=== PATIENT | female | born 1980 | race Caucasian/White ===

== ENCOUNTER → 2020-10-29 09:38 | Outpatient (BNVA) | payer OTHER, SELFPAY | PROVIDERS: Visit Provider Surgery ==

== ENCOUNTER 2020-11-29 12:52 | Outpatient (REF) | payer OTHER, SELFPAY ==
--- NOTE | ~2020-11-29 | US_ITS ---
EXAMINATION: US VENOUS ULTRASOUND WITH DOPPLER LOWER EXTREMITY, LEFT CLINICAL INFORMATION: Pain left lower extremity. Assess for occult DVT COMPARISON: Contralateral right lower extremity venous ultrasound 02/05/2017. CT pelvis noncontrast 10/22/2019. TECHNIQUE: Ultrasound of the deep veins is performed from the hip to the calf with compression sonography and color and pulse Doppler assessment. Spectral analysis with color-flow imaging is performed. FINDINGS: There is normal venous compression and respiratory variation and augmented flow. The visualized common femoral vein, superficial femoral vein, profunda femoral vein, popliteal vein, and the trifurcation region shows no evidence of deep venous thrombosis. No popliteal fossa cyst. US/US venous duplex LE LT IMPRESSION: No DVT demonstrated in the left lower extremity.
== END 2020-11-29 12:53 | disposition home or self-care (01) ==
LOC: HO.HMGCX 12:52
PROVIDERS: PCP Internal Medicine; Visit Provider Nurse Practitioner Family
DX: M79.662 Pain in left lower leg (principal)
CPT/HCPCS: 93971

== ENCOUNTER 2020-12-02 11:09 | Outpatient (REF) | payer OTHER, SELFPAY ==
[2020-12-02 11:41] LABS: MANUAL DIFF FLAG NO
[2020-12-02 11:54] LABS: Basophils Absolute Auto 0.1 X10*3/uL (0.0-0.2); Basophils Percent Auto 1.2 % (0-2); Eosinophils Absolute Auto 0.1 X10*3/uL (0.0-0.4); Eosinophils Percent Auto 1.4 % (0-4); Hematocrit 38.2 % (37-47); Imm Gran Abs Auto 0.01 X10*3/uL (0.00-0.03); Imm Gran Pct Auto 0.2 % (0.0-0.4); Lymphocytes Absolute Auto 2.1 X10*3/uL (1.2-4.9); Lymphocytes Percent Auto 39.9 % (20-40); Mean Corpuscular HGB Conc 31.4 g/dl (31.0-35.0); Mean Corpuscular Hemoglobin 28.2 pg (27.0-33.0); Mean Corpuscular Volume 89.9 fL (80-98); Mean Platelet Volume 10.5 fL (9.4-12.3); Monocytes Absolute Auto 0.2 X10*3/uL (0.1-1.2); Monocytes Percent Auto 4.7 % (2-11); Neutrophils Absolute Auto 2.7 X10*3/uL (2.0-8.3); Neutrophils Percent Auto 52.6 % (45-73); Platelet Count 273 X10*3/uL (160-400); Red Blood Count 4.25 X10*6/uL (4.20-5.50); Red Cell Distribution Width 13.8 % (11.0-16.0); White Blood Count 5.1 X10*3/uL (4.8-10.8)
[2020-12-02 12:26] LABS: Thyroid Stimulating Hormone 1.87 uIU/mL (0.32-4.0); Vitamin D 25-OH Total 17.7 ng/mL (>30)
[2020-12-02 12:37] LABS: Alanine Aminotransferase 12 U/L (0-31); Albumin Level 4.3 g/dL (3.5-5.0); Alkaline Phosphatase 88 U/L (39-117); Anion Gap 11 (12-20); Aspartate Amino Transferase 18 U/L (5-31); Bilirubin Total 0.6 mg/dL (0.0-1.0); Blood Urea Nitrogen 14 mg/dL (9-16); C Reactive Protein 0.08 mg/dL (< or = 0.50); Calcium 8.9 mg/dL (8.4-10.2); Carbon Dioxide 24 mmol/L (22-29); Chloride 108 mmol/L (96-108); Cholesterol 186 mg/dL; Estimated Glomerular Filt Rate > 60; Glucose Fasting 95 mg/dL (60-99); HDL Cholesterol 64 mg/dL; Iron 43 mcg/dL (30-160); LDL Cholesterol Calculated 104 mg/dl; Percent Iron Saturation 11 % (15-50); Potassium 4.7 mmol/L (3.3-5.1); Sodium 138 mmol/L (135-145); Total Iron Binding Capacity 398 mcg/dL (228-428); Total Protein 7.2 g/dL (6.5-8.0); Triglycerides 91 mg/dL; Unsaturated Iron Binding 355 ug/dL
[2020-12-04 09:24] LABS: Vitamin B12 600 pg/mL (200-900)
[2020-12-06 03:56] LABS: Zinc 57 mcg/dL (60-130)
[2020-12-06 06:17] LABS: Vitamin B1 7 nmol/L (8-30)
[2020-12-08 14:57] LABS: Vitamin A 40 mcg/dL (38-98)
== END 2020-12-02 11:10 | disposition home or self-care (01) ==
LOC: HO.LAB 11:09
PROVIDERS: PCP Internal Medicine; Visit Provider Surgery
DX: Z01.818 Encounter for other preprocedural examination (principal); K91.2 Postsurgical malabsorption, not elsewhere classified; E55.9 Vitamin D deficiency, unspecified
CPT/HCPCS: 36415; 80053; 80061; 82306; 82607; 83540; 84425; 84443; 84590; 84630; 85025; 86140

== ENCOUNTER → 2020-12-09 08:07 | Outpatient (BNVA) | payer OTHER, SELFPAY | PROVIDERS: PCP Internal Medicine; Visit Provider Surgery | DX: K91.2 Postsurgical malabsorption, not elsewhere classified (principal); Z01.818 Encounter for other preprocedural examination; Z13.9 Encounter for screening, unspecified ==

== ENCOUNTER 2021-05-24 13:53 | Outpatient (REF) | payer OTHER, SELFPAY ==
[2021-05-27 00:21] LABS: HPV mRNA E6/E7 rflx Not Detected (Not Detected)
== END 2021-05-24 13:54 | disposition home or self-care (01) ==
LOC: HO.LAB 13:53
PROVIDERS: PCP Internal Medicine; Visit Provider Advanced Practice Midwife
DX: Z01.419 Encounter for gynecological examination (general) (routine) without abnormal findings (principal); Z11.51 Encounter for screening for human papillomavirus (HPV); Z87.42 Personal history of other diseases of the female genital tract
CPT/HCPCS: 87624; 88142

== ENCOUNTER 2021-07-28 15:14 | Outpatient (REF) | payer OTHER, SELFPAY ==
--- NOTE | ~2021-07-28 | MM_ITS ---
EXAMINATION: MM SCREENING DIGITAL BREAST TOMOSYNTHESIS, BILATERAL CLINICAL INFORMATION: Screening. Asymptomatic. The lifetime risk of breast cancer based on the Tyrer-Cuzick Model is 12.5%. COMPARISON: Mammography: None. TECHNIQUE: Digital breast tomosynthesis is performed in both the craniocaudal and mediolateral oblique views along with computer-aided detection (CAD). Synthesized 2D images are generated from the tomosynthesis. Additional right exaggerated craniocaudal view performed. FINDINGS: The breasts are extremely dense, which lowers the sensitivity of mammography (ACR BI-RADS breast composition Category d). There are no significant masses, abnormal calcifications, or other abnormalities. On mediolateral oblique generated view of the left breast there is a question of irregular mass with calcifications however on tomosynthesis this is seen to represent superimposition of structures with the questioned calcifications appearing to be artifactual and similar to small density seen throughout the breasts. MM/MM tomosynthesis screening BI IMPRESSION: No specific mammographic evidence to suggest malignancy. ASSESSMENT: BI-RADS 1: Negative. RECOMMENDATION: Routine annual mammography screening. This patient's information was entered into a reminder system with a target due date for their next mammogram.
== END 2021-07-28 15:15 | disposition home or self-care (01) ==
LOC: HO.MAMMO 15:14
PROVIDERS: PCP Internal Medicine; Visit Provider Advanced Practice Midwife
DX: Z12.31 Encounter for screening mammogram for malignant neoplasm of breast (principal)
CPT/HCPCS: 77063; 77067

== ENCOUNTER 2021-08-10 15:12 | Outpatient (REF) | payer OTHER, SELFPAY ==
[2021-08-13 17:56] LABS: HPV mRNA E6/E7 rflx Not Detected (Not Detected)
== END 2021-08-10 15:13 | disposition home or self-care (01) ==
LOC: HO.LAB 15:12
PROVIDERS: PCP Internal Medicine; Visit Provider Advanced Practice Midwife
DX: Z12.4 Encounter for screening for malignant neoplasm of cervix (principal); Z11.51 Encounter for screening for human papillomavirus (HPV); Z87.42 Personal history of other diseases of the female genital tract
CPT/HCPCS: 87624; 88142

== ENCOUNTER 2022-03-15 08:23 | Outpatient (REF) | payer OTHER, SELFPAY ==
--- NOTE | ~2022-03-15 | XR_ITS ---
EXAMINATION: XR CHEST CLINICAL INFORMATION: Bronchitis. COMPARISON: 09/29/2019 chest radiographs. TECHNIQUE: 2 views of the chest were obtained. FINDINGS: No significant abnormality is noted involving the heart, lungs, mediastinum, bony thorax or soft tissues. XR/XR chest 2V IMPRESSION: No acute cardiopulmonary process.
== END 2022-03-15 08:24 | disposition home or self-care (01) ==
LOC: HO.HMGCX 08:23
PROVIDERS: PCP Internal Medicine; Visit Provider Physician Assistant
DX: J40 Bronchitis, not specified as acute or chronic (principal)
CPT/HCPCS: 71046

== ENCOUNTER 2022-08-01 13:06 | Outpatient (REF) | payer OTHER, SELFPAY ==
--- NOTE | ~2022-08-01 | MM_ITS ---
EXAMINATION: MM SCREENING DIGITAL BREAST TOMOSYNTHESIS, BILATERAL CLINICAL INFORMATION: Screening. Asymptomatic. COMPARISON: Mammography: July 28, 2021 TECHNIQUE: Digital breast tomosynthesis is performed in both the craniocaudal and mediolateral oblique views along with computer-aided detection (CAD). Synthesized 2D images are generated from the tomosynthesis. FINDINGS: The breasts are heterogeneously dense, which may obscure small masses (ACR BI-RADS breast composition Category c). There are no significant masses, abnormal calcifications, or other abnormalities. MM/MM tomosynthesis screening BI IMPRESSION: No significant changes from prior exam. ASSESSMENT: BI-RADS 1: Negative RECOMMENDATION: Routine annual mammography screening. This patient's information was entered into a reminder system with a target due date for their next mammogram.
== END 2022-08-01 13:07 | disposition home or self-care (01) ==
LOC: HO.MAMMO 13:06
PROVIDERS: PCP Internal Medicine; Visit Provider Advanced Practice Midwife
DX: Z12.31 Encounter for screening mammogram for malignant neoplasm of breast (principal)
CPT/HCPCS: 77063; 77067

== ENCOUNTER 2022-10-11 09:36 | Outpatient (REF) | payer OTHER, SELFPAY ==
[2022-10-11 11:43] LABS: MANUAL DIFF FLAG NO
[2022-10-11 11:49] LABS: Basophils Absolute Auto 0.1 X10*3/uL (0.0-0.2); Basophils Percent Auto 1.1 % (0-2); Eosinophils Absolute Auto 0.1 X10*3/uL (0.0-0.4); Eosinophils Percent Auto 1.8 % (0-4); Hematocrit 31.9 % (37.0-47.0); Hemoglobin 9.6 g/dl (12.0-16.0); Imm Gran Abs Auto 0.01 X10*3/uL (0.00-0.03); Imm Gran Pct Auto 0.2 % (0.0-0.4); Lymphocytes Absolute Auto 1.7 X10*3/uL (1.2-4.9); Lymphocytes Percent Auto 30.1 % (20-40); Mean Corpuscular HGB Conc 30.1 g/dl (31.0-35.0); Mean Corpuscular Hemoglobin 24.1 pg (27.0-33.0); Mean Corpuscular Volume 79.9 fL (80.0-98.0); Mean Platelet Volume 11.7 fL (9.4-12.3); Monocytes Absolute Auto 0.3 X10*3/uL (0.1-1.2); Monocytes Percent Auto 5.5 % (2-11); Neutrophils Absolute Auto 3.4 x10*3/uL (2.0-8.3); Neutrophils Percent Auto 61.3 % (45-73); Platelet Count 228 X10*3/uL (160-400); Red Blood Count 3.99 X10*6/uL (4.20-5.50); Red Cell Distribution Width 15.9 % (11.0-16.0); White Blood Count 5.5 X10*3/uL (4.8-10.8)
[2022-10-11 12:29] LABS: Estimated Average Glucose 103 mg/dL; Hemoglobin A1c % 5.2 %
[2022-10-11 12:38] LABS: Alanine Aminotransferase 11 U/L (0-31); Alkaline Phosphatase 56 U/L (39-117); Anion Gap 10 (12-20); Aspartate Amino Transferase 12 U/L (5-31); Bilirubin Total 0.6 mg/dL (0.0-1.0); Blood Urea Nitrogen 12 mg/dL (9-16); C Reactive Protein < 0.10 mg/dL (< or = 0.50); Calcium 8.7 mg/dL (8.4-10.2); Carbon Dioxide 22 mmol/L (22-29); Chloride 110 mmol/L (96-108); Cholesterol 155 mg/dL; Estimated Glomerular Filt Rate > 60; Glucose Random 97 mg/dL (60-115); HDL Cholesterol 59 mg/dL; Iron 23 mcg/dL (30-160); LDL Cholesterol Calculated 78 mg/dl; Percent Iron Saturation 6 % (15-50); Potassium 4.2 mmol/L (3.3-5.1); Sodium 138 mmol/L (135-145); Total Iron Binding Capacity 394 mcg/dL (228-428); Total Protein 6.9 g/dL (6.5-8.0); Triglycerides 93 mg/dL; Unsaturated Iron Binding 371 ug/dL
[2022-10-11 12:42] LABS: Ferritin 4 ng/mL (10-250); Insulin 6 uU/mL (2-29); TSH reflex Free T4 1.35 uIU/mL (0.32-4.0); Vitamin D 25-OH Total 16.2 ng/mL (>30)
[2022-10-11 12:43] LABS: Folate 13.4 ng/mL (> or = 4.0); Vitamin B12 386 pg/mL (200-900)
[2022-10-12 13:48] LABS: PTHI 120 pg/mL (16-77)
[2022-10-14 05:23] LABS: Zinc 67 mcg/dL (60-130)
[2022-10-16 05:03] LABS: Vitamin B1 9 nmol/L (8-30)
[2022-10-16 09:43] LABS: Vitamin A 46 mcg/dL (38-98)
== END 2022-10-11 09:37 | disposition home or self-care (01) ==
LOC: HO.HMGCLDS 09:36
PROVIDERS: PCP Internal Medicine; Visit Provider Physician Assistant Surgical
DX: Z98.84 Bariatric surgery status (principal)
CPT/HCPCS: 36415; 80053; 80061; 82306; 82607; 82728; 82746; 83036; 83525; 83540; 83970; 84425; 84443; 84590; 84630; 85025; 86140

== ENCOUNTER → 2022-10-24 12:54 | Outpatient (BNVA) | payer OTHER, SELFPAY | PROVIDERS: PCP Internal Medicine; Visit Provider Physician Assistant Surgical | DX: E66.9 Obesity, unspecified (principal) ==

== ENCOUNTER → 2022-12-28 12:53 | Outpatient (BNVA) | payer OTHER, SELFPAY | PROVIDERS: PCP Internal Medicine; Visit Provider Physician Assistant Surgical | DX: Z13.89 Encounter for screening for other disorder (principal) ==

== ENCOUNTER 2023-01-12 11:01 | Outpatient (REF) | payer OTHER, SELFPAY ==
[2023-01-12 14:45] LABS: Influenza A PCR NEGATIVE (Negative); Influenza B PCR NEGATIVE (Negative); Resp Syncy Virus RNA Qual PCR NEGATIVE (Negative); SARS COV2 PCR INHOUSE NEGATIVE (Negative)
== END 2023-01-12 11:02 | disposition home or self-care (01) ==
LOC: HO.LAB 11:01
PROVIDERS: Visit Provider Nurse Practitioner Family
DX: Z20.822 Contact with and (suspected) exposure to COVID-19 (principal); R09.89 Other specified symptoms and signs involving the circulatory and respiratory systems
CPT/HCPCS: 0241U

== ENCOUNTER 2023-06-26 12:50 | Outpatient (AMB) | payer OTHER, SELFPAY ==
--- NOTE | 2023-06-26 12:58 | MHC.OFFVISWM ---
Intake VS Expanded 06/26/23 13:10 BP 118/60 Blood Pressure Location Rt brachial Blood Pressure Position Sitting Pulse 79 Pulse Source Pulse Oximeter Temp 98.9 F Temperature Source Temporal Artery Scan Pulse Oximetry 99 Oxygen Delivery Method Room Air Height 5 ft 3 in Weight 200 lb 12.8 oz BMI 35.6 Body Fat % 38.0 Body Fat Mass 76.2 Fat Free Mass 124.4 Visceral Fat Rating 9.0 Body Water % 44.3 Body Water Mass 88.8 Muscle Mass/Score 118.2 Basal Metabolic Rate/Score 1,709 Intake Visit Reasons: (OV) LRYGB DOS 10/29/19 Allergies amoxicillin [From AUGMENTIN] Adverse Reaction (Severe, Verified 06/26/23 13:10) DIARRHEA clavulanic acid [From AUGMENTIN] Adverse Reaction (Severe, Verified 06/26/23 13:10) DIARRHEA Augmentin Allergy (Unknown, Uncoded 06/26/23 13:10) nausea and vomiting dogs/mold/dust Allergy (Unknown, Uncoded 06/26/23 13:10) nka Medication List - Last Reconciled 06/26/23 by LACEY Daniel biotin 10,000 mcg PO DAILY cholecalciferol (vitamin D3) 125 mcg PO DAILY iron,carbonyl-vitamin C 65 mg iron- 125 mg (Vitron-C) 1 tab PO BEDTIME [id number]-txi-rynp-FA-vit K 45 mg iron- 800 mcg-120 mcg (Bariatric Multivitamins) caps PO DAILY vitamin B complex (B Complex-Vitamin B12 tablet) 1 tab PO DAILY HPI HPI Comments History of Present Illness Details This?is a?42?yo female who is s/p RYGB 10/29/2019. Presents for 3 year 8 month post op visit. Weight at last visit on 12/28/2022 was 195.4 pounds with a BMI of 34.6, weight today is 200.8 pounds, representing a 5.4 pound weight gain with a BMI today of 35.6.? Reports occasionally experiencing a clammy feeling after eating, unsure what she ate at the time. Present meal plan includes: goal 80-85g/day midnight- Muscle Milk or Premier shake breakfast- yogurt with berries lunch- 3oz protein, 3oz veg Pt tends to eat 2 meals, one shake instead. Might have a small portion of rice. taking [employer] works 80-120 hours/week, thinks not getting enough protein Exercise routine includes: none, I'm constantly working - has a physical job, has a [employer] and wants to do more formal exercise [facility] [place] Medical History Factor V Leiden mutation History of DVT (deep vein thrombosis) Mixed hyperlipidemia Normal pelvic exam PCOS (polycystic ovarian syndrome) Thyroid nodule Vitamin D deficiency Surgical History History of repair of hiatal hernia History of Lauren-en-Y gastric bypass S/P wisdom tooth extraction Hx of tonsillectomy Hx of appendectomy Family History Father Hypercholesteremia HTN (hypertension) Mother No problems noted. Sister No problems noted. Other Mental health disorder Social History Housing: House Alcohol intake: current Alcohol intake frequency: holidays/special occasions only Patient Tobacco Use Status: Never used Tobacco e-Cigarette/Vaping Use: Never Used Second Hand Smoke Exposure: No (as a child) Current occupational status: employed Cognitive needs: No Hearing needs: No Vision needs: No Female Reproductive History Menstrual Age of Menarche: 11 Physical Exam Vital Signs: Last Vital Signs Temp 98.9 F 06/26/23 13:10 Pulse 79 06/26/23 13:10 BP 118/60 06/26/23 13:10 Pulse Ox 99 06/26/23 13:10 Oxygen Delivery Method Room Air 06/26/23 13:10 BMI result Body Mass Index 35.6 Assessment & Plan Assessment & Plan (1) Obesity (BMI 30-39.9): Code(s): E66.9 - Obesity, unspecified (2) History of Lauren-en-Y gastric bypass: Comment: 10/2019 Code(s): Z98.84 - Bariatric surgery status Plan Pt is agreeable to visit with RD to discuss meal plan options, as she is struggling to get enough protein and would like help with nutrition especially considering her long hours at work and variable schedule. Discussed the possibility of dumping syndrome as the cause of her postprandial clamminess; pt will track episodes and what was eaten before any future episodes. Labs ordered so pt can have done in September prior to next visit. RTC in early Oct for annual. Patient is obese and is not considered stable at this time. I spent a total of 30 minutes reviewing/updating records, examining the patient and counseling the patient on weight management as detailed above. Orders: Orders Lipid Panel Today Z98.84 - Bariatric surgery status Zinc Today Z98.84 - Bariatric surgery status Comprehensive Met. Panel Today Z98.84 - Bariatric surgery status C Reactive Protein Today Z98.84 - Bariatric surgery status TSH reflex Free T4 Today Z98.84 - Bariatric surgery status Vitamin D 25-OH Total Today Z98.84 - Bariatric surgery status Hemoglobin A1c Today Z98.84 - Bariatric surgery status Insulin Today Z98.84 - Bariatric surgery status IRON PROFILE Today Z98.84 - Bariatric surgery status Complete Blood Count Auto Diff Today Z98.84 - Bariatric surgery status Vitamin B12 and Folate Today Z98.84 - Bariatric surgery status Vitamin B1 Today Z98.84 - Bariatric surgery status Vitamin A Today Z98.84 - Bariatric surgery status Ferritin Today Z98.84 - Bariatric surgery status PTHI Today Z98.84 - Bariatric surgery status Coding Level of Care Code Est Pt Level 4 (13006) Diagnoses Obesity (BMI 30-39.9) E66.9 History of Lauren-en-Y gastric bypass Z84
[2023-06-26 13:10] VITALS: BP 118/60; PULSE 79; TEMP 37.2; O2SAT 99; BMI 35.6
== END 2023-06-26 13:40 | disposition home or self-care (01) ==
PROVIDERS: PCP Internal Medicine; Visit Provider Physician Assistant Surgical
DX: E66.9 Obesity, unspecified (principal); Z68.35 Body mass index [BMI] 35.0-35.9, adult; Z90.3 Acquired absence of stomach [part of]; Z98.84 Bariatric surgery status
CPT/HCPCS: 99214

== ENCOUNTER → 2023-06-26 12:50 | Outpatient (BNVA) | payer OTHER, SELFPAY | PROVIDERS: PCP Internal Medicine; Visit Provider Physician Assistant Surgical ==

== ENCOUNTER 2023-08-03 12:26 | Outpatient (REF) | payer OTHER, SELFPAY ==
--- NOTE | ~2023-08-03 | MM_ITS ---
EXAMINATION: MM SCREENING DIGITAL BREAST TOMOSYNTHESIS, BILATERAL CLINICAL INFORMATION: Screening. Asymptomatic. COMPARISON: Mammography: This study is compared with prior exams dating back to 2020. TECHNIQUE: Digital breast tomosynthesis is performed in both the craniocaudal and mediolateral oblique views along with computer-aided detection (CAD). Synthesized 2D images are generated from the tomosynthesis. FINDINGS: The breasts are heterogeneously dense, which may obscure small masses (ACR BI-RADS breast composition Category c). There is a focal asymmetry in the lower outer quadrant of the left breast. There is an asymmetry in the superior aspect of the left breast. Additional mammographic and targeted sonographic imaging of these findings is advised. There are grouped, amorphous calcifications in the left breast, just lateral to the posterior nipple line in the middle depth. Additional mammographic imaging magnification of this finding is advised. In the right breast, no are no significant masses, abnormal calcifications, or other abnormalities. MM/MM tomosynthesis screening BI IMPRESSION: Focal asymmetry in the left breast warrants additional mammographic and targeted sonographic imaging. Asymmetry in the left breast warrants additional mammographic and targeted sonographic imaging. Calcifications in the left breast, warrant additional mammographic imaging with magnification. There are no mammographic signs of malignancy in the right breast. ASSESSMENT: BI-RADS BI-RADS 0 - Incomplete: Needs additional Imaging. RECOMMENDATION: 1. Additional views of the left breast 2. Targeted ultrasound if warranted after review of the additional views. 3. Radiology department staff will contact the patient for additional imaging. Additional Imaging required This examination should not preclude the clinical evaluation of a suspicious palpable abnormality. This patient's information was entered into a reminder system with a target due date for their next mammogram.
== END 2023-08-03 12:27 | disposition home or self-care (01) ==
LOC: HO.MAMMO 12:26
PROVIDERS: PCP Internal Medicine; Visit Provider Advanced Practice Midwife
DX: Z12.31 Encounter for screening mammogram for malignant neoplasm of breast (principal)
CPT/HCPCS: 77063; 77067

== ENCOUNTER → 2023-08-03 12:30 | Outpatient (BNV) | payer OTHER, SELFPAY | PROVIDERS: PCP Internal Medicine; Visit Provider Radiology Diagnostic Radiology | DX: Z12.31 Encounter for screening mammogram for malignant neoplasm of breast (principal) | CPT/HCPCS: 77063; 77067 ==

== ENCOUNTER 2023-08-10 07:57 | Outpatient (AMB) | payer OTHER, SELFPAY ==
[2023-08-10 08:03] VITALS: BP 110/62; PULSE 74; O2SAT 100; BMI 35.2
--- NOTE | 2023-08-10 08:03 | MHC.PC.OV ---
Vital Signs 08/10/23 08:03 Height 5 ft 3 in Weight 199 lb BMI 35.2 BP 110/62 Blood Pressure Location Rt brachial Position Sitting Pulse 74 Pulse Source Pulse Oximeter Pulse Oximetry (%) 100 Oxygen Delivery Method Room Air Intake Visit Reasons: Annual PE Intake Note: Pt is here today for her PE Allergies amoxicillin [From AUGMENTIN] Adverse Reaction (Severe, Verified 08/10/23 08:03) DIARRHEA clavulanic acid [From AUGMENTIN] Adverse Reaction (Severe, Verified 08/10/23 08:03) DIARRHEA Augmentin Allergy (Unknown, Uncoded 08/10/23 08:03) nausea and vomiting dogs/mold/dust Allergy (Unknown, Uncoded 08/10/23 08:03) nka Medication List - Last Reconciled 08/10/23 by Zabrina Faye MD biotin 10,000 mcg PO DAILY cholecalciferol (vitamin D3) 125 mcg PO DAILY iron,carbonyl-vitamin C 65 mg iron- 125 mg (Vitron-C) 1 tab PO BEDTIME [id number]-dli-uxvv-FA-vit K 45 mg iron- 800 mcg-120 mcg (Bariatric Multivitamins) caps PO DAILY vitamin B complex (B Complex-Vitamin B12 tablet) 1 tab PO DAILY Tobacco use date assessed: 08/10/23 Dental Screening Dental Screen Date: 08/10/23 Did you have a dental visit in the last 12 months?: Yes Did you have a dental problem in the last 6 months where you did not have access to dental care?: No Was dental information given to patient?: Patient has dentist HPI Annual PE HPI Details Pt presents for PE. Pt c/o sore throat , nasal and chest congestion for 2 days. Patient denies fever chills shortness of breath. She complains of burning in her stomach for 2 week started after patient has been drinking a lot of water with lemon. She denies nausea vomiting change in bowel habits hematochezia melena REPLACED BY [facility] Medical History Factor V Leiden mutation History of DVT (deep vein thrombosis) Mixed hyperlipidemia Normal pelvic exam PCOS (polycystic ovarian syndrome) Thyroid nodule Vitamin D deficiency Surgical History History of repair of hiatal hernia History of Lauren-en-Y gastric bypass S/P wisdom tooth extraction Hx of tonsillectomy Hx of appendectomy Family History Father Hypercholesteremia HTN (hypertension) Mother No problems noted. Sister No problems noted. 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 1. Little interest or pleasure in doing things: not at all 2. Feeling down, depressed, or hopeless: not at all 3. Trouble falling or staying asleep, or sleeping too much: not at all 4. Feeling tired or having little energy: not at all 5. Poor appetite or overeating: not at all 6. Feeling bad about yourself - or that you are a failure or have let yourself or your family down: not at all 7. Trouble concentrating on things, such as reading the newspaper or watching television: not at all 8. Moving or speaking so slowly that other people could have noticed. Or the opposite - being so fidgety or restless that you have been moving around a lot more than usual: not at all 9. Thoughts that you would be better off or of hurting yourself in some way: not at all Total score: 0 Source: Developed by Drs. Tyrone Dale, Jodie Chin, Jacques Gavin and colleagues, with an educational jalen from [employer]. Thrive Questionnaire Date Thrive assessed: 08/10/23 I am a: Patient What is your living situation today?: I have a steady place to live Within the past 12 months, did the food you bought not last and you didn't have the money to get more?: Never true Within the past 12 months, did you worry whether your food would run out before you got money to buy more?: Never true Do you have trouble paying for medicines?: No Do you have trouble getting transportation to medical appointments?: No Do you have trouble paying your heating and electricity bill?: No Do you have trouble taking care of your child, family member or friend?: No Do you have trouble with day-to-day activities such as bathing, preparing meals, shopping, managing finances, etc.?: No Are you currently unemployed and looking for a job?: No Are you interested in more education?: No AUDIT C Alcohol Use Questionnaire (AUDIT-C) 1. How often do you have a drink containing alcohol?: Monthly or less 2. How many drinks containing alcohol do you have on a typical day when you are drinking?: 1 or 2 3. How often do you have six or more drinks on one occasion?: Never Total Score: 1 SHAKIRA-7 AMB Questionnaire SHAKIRA-7 Date SHAKIRA - 7 assessed: 08/10/23 Feeling nervous, anxious, or on edge: 0 = Not at all Not being able to stop or control worryin = Not at all Worrying too much about different things: 0 = Not at all Trouble relaxin = Not at all Being so restless that it is hard to sit still: 0 = Not at all Becoming easily annoyed or irritable: 0 = Not at all Feeling afraid as if something awful might happen: 0 = Not at all Total SHAKIRA-7 score (0-4 normal; 5-9 mild; 10-14 moderate; 15-21 severe): 0 Source: Developed by Drs. Tyrone Dale, Jodie Chin, Jacques Gavin and colleagues, with an educational jalen from [employer]. Review of Systems Const All systems reviewed & are unremarkable except as noted in HPI and below Reports no additional complaints Eyes Reports no additional complaints ENT Reports no additional complaints Card Reports no additional complaints Resp Reports no additional complaints GI Reports no additional complaints Reports no additional complaints Physical exam (Primary Care) Vital Signs: Last Vital Signs Pulse 74 08/10/23 08:03 BP 110/62 08/10/23 08:03 Pulse Ox 100 08/10/23 08:03 Oxygen Delivery Method Room Air 08/10/23 08:03 BMI result Body Mass Index 35.2 Tobacco/Smoking Status: Tobacco use Status Tobacco use date assessed 08/10/23 08/10/23 08:03 Patient Tobacco Use Status Former Tobacco user 08/10/23 08:03 e-Cigarette/Vaping Use Never Used 08/10/23 08:03 PHQ-9: PHQ-9 Score PHQ-9: Total score 0 08/10/23 08:07 Thrive Assessment: Date of Thrive Assessment Date Thrive assessed 08/10/23 08/10/23 08:07 Const General: no acute distress HENMT Head: Yes normal to inspection General nose exam: Normal external nose present Mouth: Normal oral and palatal mucosa present Throat: Yes posterior oropharynx abnormal (erythema) Eyes General: appearance normal, both eyes and all related structures Neck Neck: Yes no lymphadenopathy and Yes supple Resp Effort & Inspection: normal respiratory effort Auscultation: clear to auscultation bilaterally Cardio Rhythm: regular rhythm Heart sounds: S1 normal heart sound present and S2 normal heart sound present GI Inspection: Yes normal to inspection Palpation (GI): Soft to palpation Percussion: Yes normal to percussion Auscultation: normal bowel sounds Assessment and Plan Assessment & Plan (1) Thyroid nodule: Comment: f/u Endo Code(s): E04.1 - Nontoxic single thyroid nodule Plan: Obtain thyroid ultrasound (2) Vitamin B1 deficiency: Code(s): E51.9 - Thiamine deficiency, unspecified Plan: Check B1 level (3) Vitamin D deficiency: Code(s): E55.9 - Vitamin D deficiency, unspecified (4) Annual physical exam: Code(s): Z00.00 - Encounter for general adult medical examination without abnormal findings Plan: Well-balanced diet regular physical activity discussed with the patient. She is up-to-date with the Pap smear and mammogram by liberal arts teacher (5) Zinc deficiency: Code(s): E60 - Dietary zinc deficiency (6) Postoperative intestinal malabsorption: Code(s): K91.2 - Postsurgical malabsorption, not elsewhere classified Plan: Follows up with bariatric surgeon twice a year Orders: Orders Complete Blood Count Auto Diff Today E51.9 - Thiamine deficiency, unspecified, E55.9 - Vitamin D deficiency, unspecified, E60 - Dietary zinc deficiency, K91.2 - Postsurgical malabsorption, not elsewhere classified, Z00.00 - Encounter for general adult medical examination without abnormal findings Lipid Panel Today E51.9 - Thiamine deficiency, unspecified, E55.9 - Vitamin D deficiency, unspecified, E60 - Dietary zinc deficiency, K91.2 - Postsurgical malabsorption, not elsewhere classified, Z00.00 - Encounter for general adult medical examination without abnormal findings Vitamin B1 Today E51.9 - Thiamine deficiency, unspecified, E55.9 - Vitamin D deficiency, unspecified, E60 - Dietary zinc deficiency, K91.2 - Postsurgical malabsorption, not elsewhere classified, Z00.00 - Encounter for general adult medical examination without abnormal findings Vitamin A Today E51.9 - Thiamine deficiency, unspecified, E55.9 - Vitamin D deficiency, unspecified, E60 - Dietary zinc deficiency, K91.2 - Postsurgical malabsorption, not elsewhere classified, Z00.00 - Encounter for general adult medical examination without abnormal findings TSH reflex Free T4 Today E51.9 - Thiamine deficiency, unspecified, E55.9 - Vitamin D deficiency, unspecified, E60 - Dietary zinc deficiency, K91.2 - Postsurgical malabsorption, not elsewhere classified, Z00.00 - Encounter for general adult medical examination without abnormal findings Vitamin D 25-OH Total Today E51.9 - Thiamine deficiency, unspecified, E55.9 - Vitamin D deficiency, unspecified, E60 - Dietary zinc deficiency, K91.2 - Postsurgical malabsorption, not elsewhere classified, Z00.00 - Encounter for general adult medical examination without abnormal findings PTHI Today E51.9 - Thiamine deficiency, unspecified, E55.9 - Vitamin D deficiency, unspecified, E60 - Dietary zinc deficiency, K91.2 - Postsurgical malabsorption, not elsewhere classified, Z00.00 - Encounter for general adult medical examination without abnormal findings US thyroid Today E04.1 - Nontoxic single thyroid nodule, E51.9 - Thiamine deficiency, unspecified, E55.9 - Vitamin D deficiency, unspecified, E60 - Dietary zinc deficiency, K91.2 - Postsurgical malabsorption, not elsewhere classified, Z00.00 - Encounter for general adult medical examination without abnormal findings Hemoglobin A1c Today K91.2 - Postsurgical malabsorption, not elsewhere classified Comprehensive [place]. Panel Fast Today E51.9 - Thiamine deficiency, unspecified, E55.9 - Vitamin D deficiency, unspecified, E60 - Dietary zinc deficiency, K91.2 - Postsurgical malabsorption, not elsewhere classified, Z00.00 - Encounter for general adult medical examination without abnormal findings IRON PROFILE Today E51.9 - Thiamine deficiency, unspecified, E55.9 - Vitamin D deficiency, unspecified, E60 - Dietary zinc deficiency, K91.2 - Postsurgical malabsorption, not elsewhere classified, Z00.00 - Encounter for general adult medical examination without abnormal findings Vitamin B12 and Folate Today E51.9 - Thiamine deficiency, unspecified, E55.9 - Vitamin D deficiency, unspecified, E60 - Dietary zinc deficiency, K91.2 - Postsurgical malabsorption, not elsewhere classified, Z00.00 - Encounter for general adult medical examination without abnormal findings Ferritin Today K91.2 - Postsurgical malabsorption, not elsewhere classified Zinc Today K91.2 - Postsurgical malabsorption, not elsewhere classified Coding Level of Care Code Est Pt Prev Care 40-64y(61893) Diagnoses Thyroid nodule E04.1 Vitamin B1 deficiency E51.9 Vitamin D deficiency E55.9 Annual physical exam Z00.00 Zinc deficiency E60 Postoperative intestinal malabsorption K91.2
== END 2023-08-10 08:40 | disposition home or self-care (01) ==
PROVIDERS: Visit Provider Internal Medicine
DX: E04.1 Nontoxic single thyroid nodule (principal); E51.9 Thiamine deficiency, unspecified; E55.9 Vitamin D deficiency, unspecified; Z00.00 Encounter for general adult medical examination without abnormal findings; E60 Dietary zinc deficiency; K91.2 Postsurgical malabsorption, not elsewhere classified
CPT/HCPCS: 99396

== ENCOUNTER 2023-08-10 08:34 | Outpatient (REF) | payer OTHER, SELFPAY ==
[2023-08-10 11:28] LABS: MANUAL DIFF FLAG NO
[2023-08-10 11:38] LABS: Basophils Absolute Auto 0.1 X10*3/uL (0.0-0.2); Basophils Percent Auto 0.8 % (0-2); Eosinophils Absolute Auto 0.2 X10*3/uL (0.0-0.4); Eosinophils Percent Auto 1.8 % (0-4); Hematocrit 33.7 % (37.0-47.0); Hemoglobin 9.9 g/dl (12.0-16.0); Imm Gran Abs Auto 0.02 X10*3/uL (0.00-0.03); Imm Gran Pct Auto 0.2 % (0.0-0.4); Lymphocytes Absolute Auto 1.5 X10*3/uL (1.2-4.9); Lymphocytes Percent Auto 18.3 % (20-40); Mean Corpuscular HGB Conc 29.4 g/dl (31.0-35.0); Mean Corpuscular Volume 78.2 fL (80.0-98.0); Mean Platelet Volume 11.3 fL (9.4-12.3); Monocytes Absolute Auto 0.5 X10*3/uL (0.1-1.2); Monocytes Percent Auto 5.5 % (2-11); Neutrophils Absolute Auto 6.1 x10*3/uL (2.0-8.3); Neutrophils Percent Auto 73.4 % (45-73); Platelet Count 200 X10*3/uL (160-400); Red Blood Count 4.31 X10*6/uL (4.20-5.50); Red Cell Distribution Width 17.5 % (11.0-16.0); White Blood Count 8.3 X10*3/uL (4.8-10.8)
[2023-08-10 12:06] LABS: Estimated Average Glucose 103 mg/dL; Hemoglobin A1c % 5.2 % (<6.0)
[2023-08-10 12:23] LABS: Ferritin 6 ng/mL (10-250); TSH reflex Free T4 1.68 uIU/mL (0.32-4.0); Vitamin D 25-OH Total 38.1 ng/mL (>30)
[2023-08-10 12:26] LABS: Anion Gap 9 (12-20)
[2023-08-10 12:31] LABS: Alanine Aminotransferase 12 U/L (0-31); Albumin Level 4.4 g/dL (3.5-5.0); Alkaline Phosphatase 68 U/L (39-117); Aspartate Amino Transferase 17 U/L (5-31); Bilirubin Total 0.5 mg/dL (0.0-1.0); Blood Urea Nitrogen 15 mg/dL (9-16); Calcium 9.2 mg/dL (8.4-10.2); Carbon Dioxide 25 mmol/L (22-29); Chloride 108 mmol/L (96-108); Cholesterol 149 mg/dL (<200); Estimated Glomerular Filt Rate > 60; Glucose Fasting 97 mg/dL (60-99); HDL Cholesterol 55 mg/dL (>40); Iron 34 mcg/dL (30-160); LDL Cholesterol Calculated 78 mg/dL (<100); Percent Iron Saturation 9 % (15-50); Potassium 3.8 mmol/L (3.3-5.1); Sodium 138 mmol/L (135-145); Total Iron Binding Capacity 374 mcg/dL (228-428); Total Protein 7.7 g/dL (6.5-8.0); Triglycerides 83 mg/dL (<150); Unsaturated Iron Binding 340 ug/dL
[2023-08-10 12:50] LABS: Folate 13.8 ng/mL (> or = 4.0); Vitamin B12 742 pg/mL (200-900)
[2023-08-13 11:53] LABS: Calcium (PTHI) 9.1 mg/dL (8.6-10.2); PTHI 78 pg/mL (16-77)
[2023-08-14 14:48] LABS: Zinc 57 mcg/dL (60-130)
[2023-08-15 03:54] LABS: Vitamin A 39 mcg/dL (38-98)
[2023-08-17 14:04] LABS: Vitamin B1 14 nmol/L (8-30)
== END 2023-08-10 08:35 | disposition home or self-care (01) ==
LOC: HO.HMGCLDS 08:34
PROVIDERS: PCP Internal Medicine; Visit Provider Internal Medicine
DX: Z00.00 Encounter for general adult medical examination without abnormal findings (principal); E51.9 Thiamine deficiency, unspecified; E55.9 Vitamin D deficiency, unspecified; E60 Dietary zinc deficiency; K91.2 Postsurgical malabsorption, not elsewhere classified
CPT/HCPCS: 36415; 80053; 80061; 82306; 82607; 82728; 82746; 83036; 83540; 83970; 84425; 84443; 84590; 84630; 85025

== ENCOUNTER 2023-08-17 10:53 | Outpatient (AMB) | payer OTHER, SELFPAY ==
--- NOTE | 2023-08-17 10:54 | MHC.OFFWIV ---
Intake Vital Signs 08/17/23 10:55 Height 5 ft 3 in Weight 199 lb BMI 35.2 BP 116/74 Blood Pressure Location Lt brachial Position Sitting Pulse 78 Pulse Source Pulse Oximeter Temp 98.1 F Temp Source Temporal Artery Scan Pulse Oximetry (%) 98 Oxygen Delivery Method Room Air Intake Visit Reasons: EP ?Sinus Infection Intake Note: pt is here for c.o possible sinus infection Patient Tobacco Use Status: Former Tobacco user Allergies amoxicillin [From AUGMENTIN] Adverse Reaction (Severe, Verified 08/17/23 10:55) DIARRHEA clavulanic acid [From AUGMENTIN] Adverse Reaction (Severe, Verified 08/17/23 10:55) DIARRHEA Augmentin Allergy (Unknown, Uncoded 08/10/23 08:03) nausea and vomiting dogs/mold/dust Allergy (Unknown, Uncoded 08/10/23 08:03) nka Do you need a note to return to daycare/school/sports/work: Yes HPI HPI Comments History of Present Illness Details Ongoing sinus symptoms x 1.5 weeks Seen last week for physical and told it was a cold + congestion, green mucus Started in chest but now in head She denies CP or SOB + headache behind eyes and she said it is not horrible Increased green color No fever or chills Tried Mucinex, Sudafed without relief She denies current ear pain or st. She denies sick contacts [facility] Medical History Factor V Leiden mutation History of DVT (deep vein thrombosis) Mixed hyperlipidemia Normal pelvic exam PCOS (polycystic ovarian syndrome) Thyroid nodule Vitamin D deficiency Surgical History History of repair of hiatal hernia History of Lauren-en-Y gastric bypass S/P wisdom tooth extraction Hx of tonsillectomy Hx of appendectomy Family History Father Hypercholesteremia HTN (hypertension) Mother No problems noted. Sister No problems noted. 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 Housing: House Alcohol intake: current Alcohol intake frequency: holidays/special occasions only Patient Tobacco Use Status: Former Tobacco user e-Cigarette/Vaping Use: Never Used Second Hand Smoke Exposure: No (as a child) Current occupational status: employed Cognitive needs: No Hearing needs: No Vision needs: No Female Reproductive History Menstrual Age of Menarche: 11 Review of Systems Const Denies chills, Denies fatigue and Denies fever(s) Eyes Denies eye discharge ENT Reports nasal congestion, Reports sinus pressure and Denies sore throat (started with one) Card Denies chest pain and Denies dyspnea Resp Reports cough and Denies dyspnea GI Denies abdominal pain Endo Denies fatigue Physical Exam Vital Signs: Last Vital Signs Temp 98.1 F 08/17/23 10:55 Pulse 78 08/17/23 10:55 BP 116/74 08/17/23 10:55 Pulse Ox 98 08/17/23 10:55 Oxygen Delivery Method Room Air 08/17/23 10:55 BMI result Body Mass Index 35.2 General: Non-toxic, NAD. Speaking full sentences. Skin: Warm dry throughout Eye: EOMI HENT: Airway patent. Uvula midline. No pharyngeal erythema or edema. 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 Bilateral canals clear. TM non-erythematous, non-bulging. No TM perforation or hemotympanum noted. + bilateral maxillary and frontal sinus tenderness to palpation Respiratory: CTA bilaterally. No wheezes, rales or rhonchi Cardiac: RRR. No murmur MSK: Full ROM extremities. Neurology: A/O x 3.No aphasia or facial droop. Gait without abnormality Psych: Good mood and affect Assessment & Plan Assessment & Plan (1) Sinusitis: Code(s): J32.9 - Chronic sinusitis, unspecified Plan Patient seen and evaluated. Lungs are clear to auscultation vital signs are stable. Symptoms ongoing for 1.5 weeks associated sinus pressure and green drainage. Will treat with antibiotic. She says that she has sensitivity to Augmentin so we will give doxycycline to take with food, avoiding alcohol. Patient advised follow-up with her primary care provider in cough questions. She gave verbal understanding and had no additional questions at discharge Medications: New doxycycline hyclate 100 mg PO BID 14 caps 0RF J32.9 - Chronic sinusitis, unspecified Coding Level of Care Code Est Pt Level 3 (88769) Diagnoses Sinusitis J32.9
[2023-08-17 10:55] VITALS: BP 116/74; PULSE 78; TEMP 36.7; O2SAT 98; BMI 35.2
== END 2023-08-17 12:23 | disposition home or self-care (01) ==
PROVIDERS: PCP Internal Medicine; Visit Provider Physician Assistant
DX: J32.9 Chronic sinusitis, unspecified (principal)
CPT/HCPCS: 99213

== ENCOUNTER 2023-08-28 13:59 | Outpatient (REF) | payer OTHER, SELFPAY ==
--- NOTE | ~2023-08-28 | US_ITS ---
EXAMINATION: US THYROID CLINICAL INFORMATION: Nontoxic single thyroid nodule. COMPARISON: Thyroid ultrasound 02/23/2020 and 03/20/2019. TECHNIQUE: Linear transducer grayscale and color Doppler examination with attention to the region of the thyroid. FINDINGS: SIZE: Measurements of the thyroid lobes and nodules are given in sagittal, anteroposterior and transverse dimensions respectively. Right Thyroid Lobe: 5.0 x 1.7 x 1.5 cm, volume 6.4 mL. Previously 5.0 x 1.4 x 1.7 cm, volume 6.2 mL. Parenchyma: The gland echotexture is homogeneous. Thyroid vascularity is normal. Left Thyroid Lobe: 4.7 x 1.6 x 1.2 cm, volume 4.5 mL. Previously 4.4 x 1.2 x 1.5 cm, volume 4.3 mL. Parenchyma: The gland echotexture is homogeneous. Thyroid vascularity is normal. Isthmus: 0.36 cm in maximum AP dimension. Previously 0.20 cm. Estimated total number of nodules greater than or equal to 1 cm: 0. Wall Taper Helper nodules are described as follows: 1. Location: Right mid. Size: 0.75 x 0.50 x 0.64 cm, volume 0.12 mL. Previously: 0.80 x 0.40 x 0.60 cm, volume 0.10 mL. Nodule characteristics: Composition: Spongiform (0). Echogenicity: Anechoic (0). Shape: Not taller than wide (0). Margins: Smooth (0). Echogenic Foci: None (0). ACR TI-RADS total points: 0 ACR TI-RADS category: 1 Significant change in size (>/= 20% in 2 dimensions and minimal increase of 2 mm or 50% or greater increase in volume): No Change in features: No Change in ACR TI-RADS risk category: No 2. Location: Inferior to left inferior lobe. Size: 0.50 x 0.40 x 0.50 cm, volume 0.05 mL. Previously: 0.60 x 0.30 x 0.50 cm, volume 0.05 mL. Nodule characteristics: Composition: Solid (2). Echogenicity: Hyperechoic (1). Shape: Not taller than wide (0). Margins: Smooth (0). Echogenic Foci: None (0). ACR TI-RADS total points: 3 ACR TI-RADS category: 3 NODES: No lymphadenopathy is seen in the tissue surrounding the thyroid gland. US/US thyroid IMPRESSION: Stable subcentimeter thyroid nodules compared to 02/23/2020. No follow-up recommended as per ACR TI-RADS. ACR TI-RADS RECOMMENDATION REFERENCE: Ultrasound-guided fine-needle aspiration, follow up ultrasound, no further followup. * TR1 (0 point) and TR2 (2 points): No FNA or followup * TR3 (3 points): FNA if more than or equal to 2.5 cm in maximum dimension, follow up ultrasound in 1, 3 and 5 years if 1.5 to 2.4 cm in maximum dimension. * TR4 (4-6 points): FNA if more than or equal to 1.5 cm in maximum dimension, follow up ultrasound in 1, 2, 3 and 5 years if 1 to 1.4 cm in maximum dimension. * TR5 (more than or equal to 7 points): FNA if more than or equal to 1 cm in maximum dimension, follow up ultrasound every year for 5 years if 0.5 to 0.9 cm in maximum dimension. * TR3, TR4 or TR5 nodules that are below the size threshold for follow up receive no followup.
== END 2023-08-28 14:00 | disposition home or self-care (01) ==
LOC: HO.HMGCX 13:59
PROVIDERS: PCP Internal Medicine; Visit Provider Internal Medicine
DX: E04.1 Nontoxic single thyroid nodule (principal)
CPT/HCPCS: 76536

== ENCOUNTER 2023-09-13 14:23 | Outpatient (REF) | payer OTHER, SELFPAY ==
--- NOTE | ~2023-09-13 | MM_ITS ---
EXAMINATION: MM DIAGNOSTIC DIGITAL BREAST TOMOSYNTHESIS, LEFT US BREAST LIMITED, LEFT MAMMOGRAPHY: CLINICAL INFORMATION: Evaluate left breast inferior calcifications seen on screening exam. Evaluate 2 focal asymmetries in the outer quadrant of the left breast also seen on recent screening exam. COMPARISON: Mammography: 08/03/2023, 08/01/2022, 07/28/2021. TECHNIQUE: Digital breast tomosynthesis is performed in the following views: Spot magnification views in the left CC and MLO projections, a full-field 3-D left mediolateral view, as well as 3-D spot compression views in the MLO and left CC projection x2. FINDINGS: The breasts are heterogeneously dense, which may obscure small masses (ACR BI-RADS breast composition Category c). In the lower slightly outer left breast abutting a circumscribed mass (cyst) there are loosely grouped calcifications which are predominantly punctate and rounded in morphology without significant pleomorphism, branching, or linearity. No definite layering seen. These have a probably benign appearance and six-month interval follow-up recommended to ensure stability. Within the inferior lateral left breast, there is a 2.4 cm oval circumscribed mass, 5:00 axis, likely a cyst which will be evaluated by ultrasound. Within the superior lateral left breast there is a 1.8 cm oval circumscribed mass, 2:00 axis, also likely a cyst which will be evaluated by ultrasound. There are smaller circumscribed oval foci throughout the left breast suggesting small cysts or fibrocystic changes. ULTRASOUND: CLINICAL INFORMATION: As above. COMPARISON: None TECHNIQUE: Targeted sonographic evaluation was performed using a high frequency linear transducer. Attention was given to the lateral one half of the left breast. Selected archived documentation. FINDINGS: LEFT BREAST: Within the left breast at the 5:00 axis, 2 cm from the nipple, there is a 2.0 x 1.4 x 0.9 cm simple cyst, benign. This correlates well with the mammographic focus of concern. There are abutting microcystic changes with probable tiny calcifications present, suggesting foci of apocrine metaplasia. Within the left breast at the 2:00 axis, 8 cm from the nipple, there is a simple cyst measuring 1.4 x 1.4 x 1.0 cm, also correlating with the mass seen on mammography in the 2:00 axis. There are no findings suspicious for malignancy. MM/MM tomosynthesis added views L IMPRESSION: No findings suspicious for malignancy in the left breast. Calcifications are probably benign, likely related to apocrine metaplasia, for which six-month interval follow-up magnification views recommended to ensure stability. There are 2 sizable simple cysts in the left breast, accounting for the mammographic foci of concern. These are benign. There are some fibrocystic changes in the left breast abutting the larger cyst. These are also benign. OVERALL ASSESSMENT: Mammography: BI-RADS 3 - Probably benign finding(s) - 6 month follow-up suggested Ultrasound: BI-RADS 3 - Probably benign finding(s) - 6 month follow-up suggested RECOMMENDATION: 6 Month F/U Results were provided to the patient at time of visit by the technologist. This patient's information was entered into a reminder system with a target due date for their next mammogram.
== END 2023-09-13 14:24 | disposition home or self-care (01) ==
LOC: HO.MAMMO 14:23
PROVIDERS: PCP Internal Medicine; Visit Provider Advanced Practice Midwife
DX: R92.1 Mammographic calcification found on diagnostic imaging of breast (principal); N64.89 Other specified disorders of breast
CPT/HCPCS: 76642; 77061; 77065

== ENCOUNTER → 2023-09-13 14:30 | Outpatient (BNV) | payer OTHER, SELFPAY | PROVIDERS: PCP Internal Medicine; Visit Provider Radiology Diagnostic Radiology | DX: R92.0 Mammographic microcalcification found on diagnostic imaging of breast (principal) | CPT/HCPCS: 76642; 77061; 77065 ==

== ENCOUNTER 2024-02-06 08:58 | Outpatient (AMB) | payer OTHER, SELFPAY ==
--- NOTE | 2024-02-06 09:04 | A.OFFVIS_ITS ---
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 Required: No Information Interpreted: clinical only Computer Forensics Analyst: Computer Forensics Analyst Present Allergies amoxicillin [From AUGMENTIN] Adverse Reaction (Severe, Verified 02/06/24 09:14) DIARRHEA clavulanic acid [From AUGMENTIN] Adverse Reaction (Severe, Verified 02/06/24 09:14) DIARRHEA Augmentin Allergy (Unknown, Uncoded 02/06/24 09:14) nausea and vomiting dogs/mold/dust Allergy (Unknown, Uncoded 02/06/24 09:14) nka Medication List - Last Reconciled 02/06/24 by Radha Wilder CNM biotin 10,000 mcg PO DAILY cholecalciferol (vitamin D3) 125 mcg PO DAILY iron,carbonyl-vitamin C 65 mg iron- 125 mg (Vitron-C) 1 tab PO BEDTIME tdujyfolosmc-cum-qvro-FA-vit K 45 mg iron- 800 mcg-120 mcg (Bariatric Multivitamins) caps PO DAILY vitamin B complex (B Complex-Vitamin B12 tablet) 1 tab PO DAILY Is last menstrual period known: Yes Last menstrual period: 01/29/24 Do you need a note to return to daycare/school/sports/work: No HPI 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 She has no supervisor printing and stamping concerns at all she says she is getting Q 6 month mammograms to follow something that was found in left breast. She is working fewer hours and she was last year she has just not doing double shifts she is getting exercise with Gi and a rooming exercise class that is very active. Her periods are normal she has no other concerns. [facility] Medical History Normal pelvic exam History of DVT (deep vein thrombosis) Factor V Leiden mutation Thyroid nodule Mixed hyperlipidemia Vitamin D deficiency PCOS (polycystic ovarian syndrome) Surgical History History of repair of hiatal hernia History of Lauren-en-Y gastric bypass S/P wisdom tooth extraction Hx of tonsillectomy Hx of appendectomy Family History Father Hypercholesteremia HTN (hypertension) Mother No problems noted. Sister No problems noted. 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 Housing: House Alcohol intake: current Alcohol intake frequency: holidays/special occasions only Patient Tobacco Use Status: Former Tobacco user e-Cigarette/Vaping Use: Never Used Second Hand Smoke Exposure: No (as a child) Current occupational status: employed Cognitive needs: No Hearing needs: No Vision needs: No Female Reproductive History Menstrual Age of Menarche: 11 Date of last menstrual period: 01/29/24 control method: other Total pregnancies: 0 Date of last pap smear: 08/11/21 (negative) History of abnormal pap smear: Yes (2006& 2007,Abn.) Date of Mammogram: 08/14/23 (BI-Rads 3- probably benign finding) Physical Exam Vital Signs: BMI result Body Mass Index 34.9 Const General: healthy appearing, comfortable, no acute distress, well developed and alert Nutritional Appearance: average body habitus Orientation/consciousness: patient oriented x3 Limitations: no limitations HEENT Head: Yes normocephalic Neck Neck: Yes normal visual inspection Chest Chest palpation & inspection: normal inspection of the chest Breast/axilla inspection: normal inspection of the breasts and normal inspection of the axillae Breast/axilla palpation: normal palpation of the breasts and normal palpation of the axillae Resp Effort & Inspection: normal respiratory effort GI Inspection: Yes normal to inspection, No Abdominal wall edema and No distended Palpation (GI): Soft to palpation and nontender Other: Speculum exam within normal limits vagina pink and moist cervix nulliparous pink smooth tightly closed some dark. Blood noted at os when Cytobrush was introduced os cervix is long close thick mobile nontender. Uterus is small midposition mobile nontender adnexa nontender not enlarged very good tone with Kegel. General: Yes bladder normal to palpation External Female Exam: normal external appearance and normal appearance of the urethra Speculum Exam - Vagina: normal appearance of the vagina, normal palpation and normal vaginal discharge Speculum Exam - Cervix: normal appearance of the cervix, normal palpation and nontender Bimanual exam- vagina & uterus: normal bimanual exam, normal palpation, uterine size normal, bladder normal to palpation, consistency normal, normal palpation, uterine mobility normal, uterine shape normal, No Cervical tenderness present, non-tender and no cervical motion tenderness Bimanual Exam- Adnexa, other: normal adnexae, no masses, normal and No adnexal tenderness Neuro General: patient oriented x3 Assessment & Plan Assessment & Plan (1) Breast calcification seen on mammogram: Comment: left breast also benign cysts. 6 month follow-up is recommended, Code(s): R92.1 - Mammographic calcification found on diagnostic imaging of breast Category: Medical (2) Hx of abnormal cervical Pap smear: Onset Date: ~09/24/06 Comment: lsil, then ascus w hpv changes, last abnl 2007, paps normal after, 08/10/21 pap= neg, neg hpv,- per asccp- repeat in 3 yrs.= 2023 Code(s): Z87.42 - Personal history of other diseases of the female genital tract Category: Medical (3) Well woman exam with routine gynecological exam: Code(s): Z01.419 - Encounter for gynecological examination (general) (routine) without abnormal findings Category: Medical Plan -----Discussed in this visit the following: healthy balanced diet, regular and consistent exercise, getting recommended health screens, doing the best she can for her particular health concerns, kegel exercises, pap smear screening and followup recommendations, mammography screening and SBE, normal changes in cycles in her life stage--- . Repeating Pap today per asccap guidelines . Patient is getting Q six-month follow-up mammogram evaluations and they are reviewed by her primary care provider. She has no need of control because her had a vasectomy.. She is taking very good care of herself and not doing double shifts anymore. RTC 1 year. Coding Level of Care Code Est Pt Prev Care 40-64y(80355) Diagnoses Breast calcification seen on mammogram R92.1 Hx of abnormal cervical Pap smear Z87.42 Well woman exam with routine gynecological exam Z01.419
[2024-02-06 09:13] VITALS: BMI 34.9
== END 2024-02-06 11:08 | disposition home or self-care (01) ==
PROVIDERS: PCP Internal Medicine; Visit Provider Advanced Practice Midwife
DX: Z01.419 Encounter for gynecological examination (general) (routine) without abnormal findings (principal); R92.1 Mammographic calcification found on diagnostic imaging of breast; Z87.42 Personal history of other diseases of the female genital tract
CPT/HCPCS: 99396

== ENCOUNTER 2024-02-06 08:58 | Outpatient (REF) | payer OTHER, SELFPAY ==
[2024-02-12 12:49] LABS: HPV mRNA E6/E7 rflx Not Detected (Not Detected)
== END 2024-02-06 08:59 | disposition home or self-care (01) ==
LOC: HO.LAB 08:58
PROVIDERS: PCP Internal Medicine; Visit Provider Advanced Practice Midwife
DX: Z01.419 Encounter for gynecological examination (general) (routine) without abnormal findings (principal); Z11.51 Encounter for screening for human papillomavirus (HPV)
CPT/HCPCS: 87624; 88142

== ENCOUNTER 2024-03-18 13:09 | Outpatient (REF) | payer OTHER, SELFPAY ==
--- NOTE | ~2024-03-18 | MM_ITS ---
EXAMINATION: MM DIAGNOSTIC DIGITAL BREAST TOMOSYNTHESIS, LEFT CLINICAL INFORMATION: Six-month follow-up for probably benign left breast calcifications in the lower outer quadrant left breast. COMPARISON: Mammography: 09/13/2023, 08/03/2023 (BI-RADS 0), 08/01/2022, 07/28/2021. Ultrasound left breast 09/13/2023. TECHNIQUE: Digital left breast tomosynthesis is performed in both the craniocaudal and mediolateral oblique views along with computer-aided detection (CAD). Synthesized 2D images are generated from the tomosynthesis. In addition to standard views, spot magnification 2-D views in the left CC and MLO projections were obtained. An added left CC view was obtained. FINDINGS: The breasts are heterogeneously dense, which may obscure small masses (ACR BI-RADS breast composition Category c). Breast tissue is again noted to be heterogeneously dense and somewhat nodular, with underlying fibrocystic changes present.. The large cyst in the 6:00 axis appears to have decreased in size significantly. The cyst in the 2:00 axis middle depth appears similar. Calcifications in the inferolateral left breast appear stable, with loose grouping, and several layering on the 90 degree ML view suggesting milk of calcium. There has been no aggressive change. These remain probably benign. No developing suspicious calcifications, suspicious masses, or developing regions of architectural distortion are identified in the left breast. MM/MM tomosynthesis diagnostic LT IMPRESSION: There are no findings suspicious for malignancy in the left breast. There are stable loosely grouped calcifications in the lower outer quadrant left breast unchanged, some of which layer on the 90 degree view suggesting milk of calcium. These remain probably benign. Six-month interval follow-up diagnostic magnification views recommended when the patient is due for bilateral screening, to establish a one-year stability. Stable benign findings as discussed. ASSESSMENT: BI-RADS BI-RADS 3 - Probably benign finding(s) - 6 month follow-up suggested RECOMMENDATION: 6 Month F/U Results were provided to the patient at time of visit by the technologist. This patient's information was entered into a reminder system with a target due date for their next mammogram.
== END 2024-03-18 13:10 | disposition home or self-care (01) ==
LOC: HO.MAMMO 13:09
PROVIDERS: PCP Internal Medicine; Visit Provider Internal Medicine
DX: R92.1 Mammographic calcification found on diagnostic imaging of breast (principal)
CPT/HCPCS: 77061; 77065

== ENCOUNTER → 2024-03-18 13:30 | Outpatient (BNV) | payer OTHER, SELFPAY | PROVIDERS: PCP Internal Medicine; Visit Provider Radiology Diagnostic Radiology | DX: R92.1 Mammographic calcification found on diagnostic imaging of breast (principal) | CPT/HCPCS: 77061; 77065 ==

== ENCOUNTER 2024-03-20 10:34 | Outpatient (REF) | payer OTHER, SELFPAY ==
--- NOTE | ~2024-03-20 | XR_ITS ---
EXAMINATION: XR KNEE, RIGHT CLINICAL INFORMATION: Pain in right knee. COMPARISON: MRI knee of July 15, 2019. X-rays 07/14/2019. TECHNIQUE: Three views of the right knee. FINDINGS: Mild narrowing of the medial compartment. Small tricompartmental osteophytes. Moderate joint effusion. XR/XR knee RT 3V IMPRESSION: Mild degenerative changes.
== END 2024-03-20 10:35 | disposition home or self-care (01) ==
LOC: HO.HOSX 10:34
PROVIDERS: Visit Provider Orthopaedic Surgery
DX: M25.561 Pain in right knee (principal)
CPT/HCPCS: 20610; 73562; J1010

== ENCOUNTER 2024-03-20 12:49 | Outpatient (AMB) | payer OTHER, SELFPAY ==
--- NOTE | 2024-03-20 12:55 | MHC.OFFVIS ---
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 Galvan don'ts with complaints of progressively worsening right knee pain and giving way. The patient states that her symptoms have gotten worse over the last 10 years. Most of the pain is along the medial aspect of her knee. The patient states that her knee will give out several times per day. She has done a home exercise program for the last 3 months which she has failed. She has had difficulty exercising because of her pain. She also reports intermittent swelling in her right knee. She has failed the last 6 weeks of conservative treatment. Allergies amoxicillin [From AUGMENTIN] Adverse Reaction (Severe, Verified 03/20/24 13:05) DIARRHEA clavulanic acid [From AUGMENTIN] Adverse Reaction (Severe, Verified 03/20/24 13:05) DIARRHEA Augmentin Allergy (Unknown, Uncoded 03/20/24 13:05) nausea and vomiting dogs/mold/dust Allergy (Unknown, Uncoded 03/20/24 13:05) nka Medication List - Last Reconciled 03/20/24 by Yuri Thornton MD biotin 10,000 mcg PO DAILY cholecalciferol (vitamin D3) 125 mcg PO DAILY iron,carbonyl-vitamin C 65 mg iron- 125 mg (Vitron-C) 1 tab PO BEDTIME dctcxsdycjfy-tcy-osrg-FA-vit K 45 mg iron- 800 mcg-120 mcg (Bariatric Multivitamins) caps PO DAILY vitamin B complex (B Complex-Vitamin B12 tablet) [address] [facility] Medical History Normal pelvic exam History of DVT (deep vein thrombosis) Factor V Leiden mutation Thyroid nodule Mixed hyperlipidemia Vitamin D deficiency PCOS (polycystic ovarian syndrome) Surgical History History of repair of hiatal hernia History of Lauren-en-Y gastric bypass S/P wisdom tooth extraction Hx of tonsillectomy Hx of appendectomy Family History Father Hypercholesteremia HTN (hypertension) Mother No problems noted. Sister No problems noted. 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 Housing: House Alcohol intake: current Alcohol intake frequency: holidays/special occasions only Patient Tobacco Use Status: Former Tobacco user e-Cigarette/Vaping Use: Never Used Second Hand Smoke Exposure: No (as a child) Current occupational status: employed Cognitive needs: No Hearing needs: No Vision needs: No Female Reproductive History Menstrual Age of Menarche: 11 Physical Exam Vital Signs: BMI result Body Mass Index 34.9 Const Other: Well-nourished well-developed very friendly female awake alert and oriented x3 in no acute distress Extrem Other: Bilateral lower extremity examination shows good capillary refill, no skin lesions noted, normal sensation light touch Right knee examination shows a mild effusion, minimal crepitus with range of motion, tenderness along her medial joint line, positive Elie's test, no instability Office Procedures Joint Injection/Drain Joint Injection/Drain Primary Site: right knee Prep: site was prepped using aseptic technique Injected: 40 mg of, DepoMedrol and 1% plain lidocaine Procedure: The patient tolerated the procedure well Coding 94726 - Large joint Procedure code (CPT) selection complete Results Reviewed Results Reviewed: Standing full weight-bearing x-rays of the patient's right knee show mild diffuse joint space narrowing, no acute bony abnormalities Assessment & Plan Assessment & Plan (1) Right knee pain: Code(s): M25.561 - Pain in right knee Category: Medical Plan Mrs. Galvan presents with right knee pain and mechanical symptoms most likely due to a medial meniscus tear. I had a lengthy discussion with the patient regarding the treatment options. The risks and benefits of a right knee cortisone injection were discussed at length with the patient. The patient wished to proceed. Prior to the injection I aspirated 2 cc of clear fluid from her right knee. She tolerated the injection well. I will also send her for an MRI of her right knee to further evaluate the status of her medial meniscus. I will see her back once the MRI is completed to discuss the findings and treatment options. Feel free to call me at any time should questions regarding her orthopedic management arise. Thank you very much for asking me to see this very friendly patient. I spent 22 minutes in reviewing the patient's records and imaging studies, seeing the patient and documenting in the medical record. Orders: Orders XR knee RT 3V Today M25.561 - Pain in right knee MR knee RT wo con Today M25.561 - Pain in right knee AMB Joint Injection/Aspiration Today M25.561 - Pain in right knee Coding Level of Care Code New Pt Level 3 (71882) Diagnoses Right knee pain M25.561 CPT Codes Coding - Large joint: 76037 - Large joint ([id number])
[2024-03-20 12:56] VITALS: BMI 34.9
== END 2024-03-20 13:28 | disposition home or self-care (01) ==
PROVIDERS: PCP Internal Medicine; Visit Provider Orthopaedic Surgery
DX: M25.561 Pain in right knee (principal)
CPT/HCPCS: 20610; 99203

== ENCOUNTER 2024-05-07 12:38 | Outpatient (REF) | payer OTHER, SELFPAY ==
--- NOTE | ~2024-05-07 | MR_ITS ---
EXAMINATION: MR KNEE WITHOUT CONTRAST, RIGHT CLINICAL INFORMATION: Right knee pain and swelling. COMPARISON: Right knee radiographs dated 03/20/2024 and MRI dated 07/15/2019. TECHNIQUE: MRI of the knee without contrast was performed using routine sequences on a high-field scanner. FINDINGS: MENISCI: Medial Meniscus: Degenerative intrasubstance signal within the meniscal body and posterior horn, increased when compared to the prior examination. Inner margin fraying of the posterior root, new when compared to the prior examination. Lateral Meniscus: Intact LIGAMENTS: Cruciate: Intact Collateral: Mild edema adjacent to the medial collateral ligament consistent with a grade 1 sprain. Intact fibular collateral ligament. EXTENSOR MECHANISM: Intact ARTICULAR CARTILAGE/BONE: Patellofemoral Compartment: Patellar median ridge full-thickness articular cartilage defect measuring up to 0.8 cm in ML dimension. Central and medial trochlear articular cartilage thinning with areas of iupg-oees-pxbyjqnkr loss. Small marginal osteophytes. Findings are progressed when compared to the prior examination. Medial Compartment: Diffuse articular cartilage thinning with lznm-xizz-vpxvdmyad weight-bearing loss and small marginal osteophytes, slightly progressed. Lateral Compartment: Mild articular cartilage signal heterogeneity and surface irregularity with small marginal osteophytes, slight progressed. JOINT FLUID AND BURSAE: Moderate joint effusion. MR/MR knee RT wo con IMPRESSION: 1. Degenerative intrasubstance signal within the medial meniscal body and posterior horn, increased when compared to the prior examination. Inner margin fraying of the posterior root, new when compared to the prior examination. 2. Probable grade 1 sprain of the medial collateral ligament. 3. Qwvz-ew-fwuxtywo patellofemoral as well as mild medial and lateral compartment osteoarthritis, slightly progressed. Moderate joint effusion.
== END 2024-05-07 12:39 | disposition home or self-care (01) ==
LOC: HO.MRI 12:38
PROVIDERS: PCP Internal Medicine; Visit Provider Orthopaedic Surgery
DX: M25.561 Pain in right knee (principal)
CPT/HCPCS: 73721

== ENCOUNTER 2024-05-13 08:04 | Outpatient (REF) | payer OTHER, SELFPAY ==
[2024-05-13 10:05] LABS: MANUAL DIFF FLAG NO
[2024-05-13 10:13] LABS: Basophils Absolute Auto 0.1 X10*3/uL (0.0-0.2); Basophils Percent Auto 1.2 % (0-2); Eosinophils Absolute Auto 0.1 X10*3/uL (0.0-0.4); Eosinophils Percent Auto 1.7 % (0-4); Hematocrit 38.6 % (37.0-47.0); Hemoglobin 12.2 g/dl (12.0-16.0); Imm Gran Abs Auto 0.02 X10*3/uL (0.00-0.03); Imm Gran Pct Auto 0.4 % (0.0-0.4); Lymphocytes Absolute Auto 1.5 X10*3/uL (1.2-4.9); Lymphocytes Percent Auto 29.6 % (20-40); Mean Corpuscular HGB Conc 31.6 g/dl (31.0-35.0); Mean Corpuscular Hemoglobin 27.4 pg (27.0-33.0); Mean Corpuscular Volume 86.5 fL (80.0-98.0); Mean Platelet Volume 11.2 fL (9.4-12.3); Monocytes Absolute Auto 0.4 X10*3/uL (0.1-1.2); Monocytes Percent Auto 7.1 % (2-11); Neutrophils Absolute Auto 3.1 x10*3/uL (2.0-8.3); Platelet Count 250 X10*3/uL (160-400); Red Blood Count 4.46 X10*6/uL (4.20-5.50); Red Cell Distribution Width 15.2 % (11.0-16.0); White Blood Count 5.2 X10*3/uL (4.8-10.8)
[2024-05-13 10:20] LABS: Estimated Average Glucose 97 mg/dL
[2024-05-13 10:28] LABS: Alanine Aminotransferase 17 U/L (0-31); Albumin Level 4.1 g/dL (3.5-5.0); Alkaline Phosphatase 58 U/L (39-117); Anion Gap 10 (12-20); Aspartate Amino Transferase 20 U/L (5-31); Bilirubin Total 0.6 mg/dL (0.0-1.0); Blood Urea Nitrogen 17 mg/dL (9-16); Calcium 8.9 mg/dL (8.4-10.2); Carbon Dioxide 23 mmol/L (22-29); Chloride 108 mmol/L (96-108); Cholesterol 153 mg/dL (<200); Estimated Glomerular Filt Rate > 60; Glucose Random 102 mg/dL (60-115); HDL Cholesterol 54 mg/dL (>40); Iron 97 mcg/dL (30-160); LDL Cholesterol Calculated 78 mg/dL (<100); Percent Iron Saturation 29 % (15-50); Potassium 4.1 mmol/L (3.3-5.1); Sodium 137 mmol/L (135-145); Total Iron Binding Capacity 332 mcg/dL (228-428); Total Protein 7.2 g/dL (6.5-8.0); Triglycerides 108 mg/dL (<150); Unsaturated Iron Binding 235 ug/dL
[2024-05-13 10:38] LABS: Iron 98 mcg/dL (30-160); Percent Iron Saturation 29 % (15-50); Total Iron Binding Capacity 334 mcg/dL (228-428); Unsaturated Iron Binding 236 ug/dL
[2024-05-13 10:57] LABS: Folate 11.9 ng/mL (> or = 4.0); Vitamin B12 654 pg/mL (200-900)
[2024-05-13 11:00] LABS: Ferritin 20 ng/mL (10-250); TSH reflex Free T4 1.97 uIU/mL (0.32-4.0); Vitamin D 25-OH Total 39.7 ng/mL (>30)
[2024-05-13 12:12] LABS: Insulin 5 uU/mL (2-29)
[2024-05-16 02:23] LABS: Zinc 59 mcg/dL (60-130)
[2024-05-19 14:52] LABS: Vitamin A 83 mcg/dL (38-98)
[2024-05-21 06:29] LABS: Vitamin B1 33 nmol/L (8-30)
== END 2024-05-13 08:05 | disposition home or self-care (01) ==
LOC: HO.HMGCLDS 08:04
PROVIDERS: PCP Internal Medicine; Referring Provider Physician Assistant Surgical; Visit Provider Internal Medicine
DX: Z13.6 Encounter for screening for cardiovascular disorders (principal); Z13.1 Encounter for screening for diabetes mellitus; D64.9 Anemia, unspecified; Z98.84 Bariatric surgery status
CPT/HCPCS: 36415; 80053; 80061; 82306; 82607; 82728; 82746; 83036; 83525; 83540; 84425; 84443; 84590; 84630; 85025; 86140

== ENCOUNTER 2024-05-20 15:00 | Outpatient (AMB) | payer OTHER, SELFPAY ==
--- NOTE | 2024-05-20 15:11 | MHC.OFFVIS ---
Vital Signs 05/20/24 15:14 Height 5 ft 3 in Weight 197 lb BMI 34.9 Intake Visit Reasons: OV- MRI review- 05/07/24 Intake Note: Mrs. Galvan don'ts with complaints of progressively worsening right knee pain and giving way. The patient states that her symptoms have gotten worse over the last 10 years. Most of the pain is along the medial aspect of her knee. The patient states that her knee will give out several times per day. She has done a home exercise program for the last 3 months which she has failed. She has had difficulty exercising because of her pain. She also reports intermittent swelling in her right knee. She has failed the last 6 weeks of conservative treatment. Allergies amoxicillin [From AUGMENTIN] Adverse Reaction (Severe, Verified 05/20/24 15:15) DIARRHEA clavulanic acid [From AUGMENTIN] Adverse Reaction (Severe, Verified 05/20/24 15:15) DIARRHEA Augmentin Allergy (Unknown, Uncoded 05/20/24 15:15) nausea and vomiting dogs/mold/dust Allergy (Unknown, Uncoded 05/20/24 15:15) nka Medication List - Last Reconciled 05/21/24 by Yuri Thornton MD biotin 10,000 mcg PO DAILY cholecalciferol (vitamin D3) 125 mcg PO DAILY iron,carbonyl-vitamin C 65 mg iron- 125 mg (Vitron-C) 1 tab PO BEDTIME ojxtjpeyrxqv-odk-hopz-FA-vit K 45 mg iron- 800 mcg-120 mcg (Bariatric Multivitamins) caps PO DAILY vitamin B complex (B Complex-Vitamin B12 tablet) 1 tab PO DAILY [facility] Medical History Normal pelvic exam History of DVT (deep vein thrombosis) Factor V Leiden mutation Thyroid nodule Mixed hyperlipidemia Vitamin D deficiency PCOS (polycystic ovarian syndrome) Surgical History History of repair of hiatal hernia History of Lauren-en-Y gastric bypass S/P wisdom tooth extraction Hx of tonsillectomy Hx of appendectomy Family History Father Hypercholesteremia HTN (hypertension) Mother No problems noted. Sister No problems noted. 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 Housing: House Alcohol intake: current Alcohol intake frequency: holidays/special occasions only Patient Tobacco Use Status: Former Tobacco user e-Cigarette/Vaping Use: Never Used Second Hand Smoke Exposure: No (as a child) Current occupational status: employed Cognitive needs: No Hearing needs: No Vision needs: No Female Reproductive History Menstrual Age of Menarche: 11 Physical Exam Vital Signs: BMI result Body Mass Index 34.9 Const Other: Well-nourished well-developed very friendly female awake alert and oriented x3 in no acute distress Extrem Other: Bilateral lower extremity examination shows good capillary refill, no skin lesions noted, normal sensation light touch Right knee examination shows a minimal effusion, minimal crepitus with range of motion, tenderness along her medial and lateral joint lines, positive Elei's test, no instability Results Reviewed Results Reviewed: Standing full weight-bearing x-rays of the patient's right knee show mild diffuse joint space narrowing, no acute bony abnormalities MRI of the patient's right knee shows mild diffuse degenerative changes as well as tearing of her medial and lateral menisci, no acute bony abnormalities Assessment & Plan Assessment & Plan (1) Right knee pain: Code(s): M25.561 - Pain in right knee Category: Medical Plan Ms. Galvan presents with right knee pain and mechanical symptoms due to tearing of her medial and lateral menisci. I had a lengthy discussion with the patient regarding the treatment options. At this point the patient appears to be failing continued non operative treatments. The risks and benefits of right knee arthroscopic surgery were discussed at length with the patient. Surgery would most likely involve right knee diagnostic arthroscopy with partial medial and lateral meniscectomies. The patient is considering undergoing surgery later this year. She does understand that she may not get 100% relief of her symptoms depending on the severity of her degenerative changes. She will contact my office to pick a surgery date when she chooses to do so. Otherwise she will follow up on an as-needed basis. Feel free to call me at any time should questions regarding her orthopedic management arise. I spent 22 minutes in reviewing the patient's records and imaging studies, seeing the patient and documenting in the medical record. Coding Level of Care Code Est Pt Level 3 (67382) Diagnoses Right knee pain M25.561
[2024-05-20 15:14] VITALS: BMI 34.9
== END 2024-05-20 15:40 | disposition home or self-care (01) ==
PROVIDERS: PCP Internal Medicine; Visit Provider Orthopaedic Surgery
DX: S83.241A Other tear of medial meniscus, current injury, right knee, initial encounter (principal); S83.281A Other tear of lateral meniscus, current injury, right knee, initial encounter
CPT/HCPCS: 99213

== ENCOUNTER → 2024-05-20 15:00 | Outpatient (BNVA) | payer OTHER, SELFPAY | PROVIDERS: PCP Internal Medicine; Visit Provider Orthopaedic Surgery ==

== ENCOUNTER 2024-09-10 11:16 | Outpatient (AMB) | payer OTHER, SELFPAY ==
--- OUTSIDE RECORDS SUMMARY | 2024-09-10 11:19 | XMS_ITS | Patient Health Record ---
[facility] Address [address] [place] [address] Care Team Providers Care Consumer Lending Manager Name Role Phone Zabrina Faye MD Primary Care Provider Kalli Menjivar Unavailable [phone] Allergies Allergen (clinical drug ingredient) Drug/Non Drug Allergy documented on EMR Reaction Allergy Type Onset Date Status all control (uncoded) blood clot Allergy Active amoxicillin / clavulanate Augmentin stomach upset Drug Allergy Active Seasonique blood clot Drug Allergy Activ e Reason For Referral No Information Medications Medication SIG (Take, Route, Frequency, Duration) Notes Start Date End Date Status Work Note-Appointment . . . Pt had a randi eduled appointment today for . 02/23/2017 Not-Taki ng Cephalexin 500 MG 1 tablet Orally Twic e a day for 7 days Not-Taking Keflex 500 MG 1 capsule Orally roldan ry 12 hrs for 7 days 05/18/2016 Not-Taking Vitamin D Active Seasonique Not-Takin g Vitamin B-12 Active Omeprazole 20 MG 2 capsules Orally On ce a day Not-Taking buPROPion HCl ER (SR) 150 MG 1 tablet in the morning Orally Once a day Not-Taking Xarelto 20 MG 1 tablet with food Orally Once a day Not-Taking Acetaminophen-Codeine 300-15 MG 1 tablet as needed Orally every 6 hrs for as needed 05/10/2017 Not-Taking Cephalexin 500 MG 1 tablet Orally ever y 12 hrs for 7 days 05/10/2017 Not-Taking Cephalexin 500 MG 1 tablet Orally Twic e a day for 7 days Not-Taking Social History Tobacco use other than smoking: Question Answer Notes Are you an other tobacco user? No Problems No Known Problems Plan Of Treatment Pending Test Test Name Order Date X ray : Ankle, right 2V 05/18/2016 X ray : Foot, right 3V 05/18/2016 [id number] 05/10/2017 85854- Debride <25 sq cm 05/24/2017 70587 I&D ABSCESS- SIMPLE,SINGLE 016 [id number] I&D ABSCESS- SIMPLE,SINGLE 017 [id number] I&D ABSCESS- SIMPLE,SINGLE 017 [id number] I&D ABSCESS- SIMPLE,SINGLE 017 Insurance Providers Payer Name Payer Address Payer Phone Subscriber Number Group Number Insured Name Patient Relationship to Insured Coverage Start Date Coverage End Date [facility] [address] [facility] [place] [address] [id number] Kermit te, Jade Self - patient is the insured Medical (General) History Medical History History ICD Code Chicken pox Reflux Sciatica Broken bones Surgical History Surgery Date(Month/Year) appendectomy 2013 tonsillectomy 2012 Hospitalization History Reason Date(Month/Year) C for blood clot due to taking Seasoni que 07/2016 [facility] for blood clot 11/22/16
[2024-09-10 11:22] VITALS: BP 116/70; PULSE 84; O2SAT 98; BMI 36.1
--- NOTE | 2024-09-10 11:22 | A.OFFPC_ITS ---
Vital Signs 09/10/24 11:22 Height 5 ft 3 in Weight 204 lb BMI 36.1 BP 116/70 Blood Pressure Location Lt brachial Position Sitting Pulse 84 Pulse Source Pulse Oximeter Pulse Oximetry (%) 98 Intake Visit Reasons: Annual PE Intake Note: Pt is here today for PE. Allergies amoxicillin [From AUGMENTIN] Adverse Reaction (Severe, Verified 09/10/24 11:23) DIARRHEA clavulanic acid [From AUGMENTIN] Adverse Reaction (Severe, Verified 09/10/24 11:23) DIARRHEA Augmentin Allergy (Unknown, Uncoded 09/10/24 11:23) nausea and vomiting dogs/mold/dust Allergy (Unknown, Uncoded 09/10/24 11:23) nka Medication List - Last Reconciled 09/10/24 by Zabrina Faye MD biotin 10,000 mcg PO DAILY cholecalciferol (vitamin D3) 125 mcg PO DAILY iron,carbonyl-vitamin C 65 mg iron- 125 mg (Vitron-C) 1 tab PO BEDTIME gkizlamezuwm-dts-iklk-FA-vit K 45 mg iron- 800 mcg-120 mcg (Bariatric Multivitamins) caps PO DAILY vitamin B complex (B Complex-Vitamin B12 tablet) 1 tab PO DAILY zinc gluconate 30 mg PO DAILY Tobacco use date assessed: 09/10/24 Dental Screening Dental Screen Date: 09/10/24 Did you have a dental visit in the last 12 months?: Yes Did you have a dental problem in the last 6 months where you did not have access to dental care?: No Was dental information given to patient?: Patient has dentist HPI Annual PE HPI Details Pt presents for PE. [facility] Medical History Normal pelvic exam History of DVT (deep vein thrombosis) Factor V Leiden mutation Thyroid nodule Mixed hyperlipidemia Vitamin D deficiency PCOS (polycystic ovarian syndrome) Surgical History History of repair of hiatal hernia History of Lauren-en-Y gastric bypass S/P wisdom tooth extraction Hx of tonsillectomy Hx of appendectomy Family History Father Hypercholesteremia HTN (hypertension) Mother No problems noted. Sister No problems noted. 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 1. Little interest or pleasure in doing things: several days 2. Feeling down, depressed, or hopeless: several days 3. Trouble falling or staying asleep, or sleeping too much: several days 4. Feeling tired or having little energy: nearly every day 5. Poor appetite or overeating: several days 6. Feeling bad about yourself - or that you are a failure or have let yourself or your family down: not at all 7. Trouble concentrating on things, such as reading the newspaper or watching television: nearly every day 8. Moving or speaking so slowly that other people could have noticed. Or the opposite - being so fidgety or restless that you have been moving around a lot more than usual: not at all 9. Thoughts that you would be better off or of hurting yourself in some way: not at all Total score: 10 Depression Screening Interpretation: Positive Depression Screening Follow-up: Existing condition and In treatment Depression Screening Done: Yes 59931 - PHQ-9 Billing: Yes Source: Developed by Drs. Tyrone Dale, Jodie Chin, Jacques Gavin and colleagues, with an educational jalen from [employer]. Thrive Questionnaire Date Thrive assessed: 09/10/24 I am a: Patient What is your living situation today?: I have a steady place to live Within the past 12 months, did the food you bought not last and you didn't have the money to get more?: Never true Within the past 12 months, did you worry whether your food would run out before you got money to buy more?: Never true Do you have trouble paying for medicines?: No Do you have trouble getting transportation to medical appointments?: No Do you have trouble paying your heating and electricity bill?: No Do you have trouble taking care of your child, family member or friend?: No Do you have trouble with day-to-day activities such as bathing, preparing meals, shopping, managing finances, etc.?: No Are you currently unemployed and looking for a job?: No Are you interested in more education?: No Please select the resources that you would like help with: None Currently or been in a relationship where the following occur: No concerns reported THRIVE Score: 0 AUDIT C Alcohol Use Questionnaire (AUDIT-C) 1. How often do you have a drink containing alcohol?: 2-4 times a month 2. How many drinks containing alcohol do you have on a typical day when you are drinking?: 3 or 4 3. How often do you have six or more drinks on one occasion?: Less than monthly Total Score: 4 SHAKIRA-7 AMB Questionnaire SHAKIRA-7 Date SHAKIRA - 7 assessed: 09/10/24 Feeling nervous, anxious, or on edge: 1 = Several days Not being able to stop or control worryin = Several days Worrying too much about different things: 1 = Several days Trouble relaxin = Several days Being so restless that it is hard to sit still: 1 = Several days Becoming easily annoyed or irritable: 1 = Several days Feeling afraid as if something awful might happen: 1 = Several days Total SHAKIRA-7 score (0-4 normal; 5-9 mild; 10-14 moderate; 15-21 severe): 7 Source: Developed by Drs. Tyrone Dale, Jodie Chin, Jacques Gavin and colleagues, with an educational jalen from [employer]. SHAKIRA-7 Assessment Billing SHAKIRA-7 Assessment Tool: SHAKIRA-7 Assessment 40636 Review of Systems Const All systems reviewed & are unremarkable except as noted in HPI and below Eyes Reports no additional complaints ENT Reports no additional complaints Card Reports no additional complaints Resp Reports no additional complaints GI Reports no additional complaints Reports no additional complaints Physical exam (Primary Care) Vital Signs: Last Vital Signs Pulse 84 09/10/24 11:22 BP 116/70 09/10/24 11:22 Pulse Ox 98 09/10/24 11:22 BMI result Body Mass Index 36.1 Tobacco/Smoking Status: Tobacco use Status Tobacco use date assessed 09/10/24 09/10/24 11:24 Patient Tobacco Use Status Never used Tobacco 09/10/24 11:33 e-Cigarette/Vaping Use Never Used 09/10/24 11:24 PHQ-9: PHQ-9 Score PHQ-9: Total score 10 09/10/24 11:24 Depression Screening Interpretation: Positive Depression Screening Follow-up: Existing condition and In treatment Thrive Assessment: Date of Thrive Assessment Date Thrive assessed 09/10/24 09/10/24 11:24 Currently or been in a relationship where the following occur: No concerns reported Const General: no acute distress HENMT Head: Yes normal to inspection Ears: hearing grossly normal bilaterally Face and sinus: Yes normal facial exam Mouth: Normal oral and palatal mucosa present Throat: Yes posterior oropharynx normal Eyes General: appearance normal, both eyes and all related structures Neck Neck: Yes no lymphadenopathy and Yes supple Resp Effort & Inspection: normal respiratory effort Auscultation: clear to auscultation bilaterally Cardio Rhythm: regular rhythm Heart sounds: S1 normal heart sound present and S2 normal heart sound present GI Inspection: Yes normal to inspection Palpation (GI): Soft to palpation Percussion: Yes normal to percussion Auscultation: normal bowel sounds Coding Level of Care Code Est Pt Prev Care 40-64y(05081) Diagnoses Anemia D64.9 Annual physical exam Z00.00 Additional Codes SHAKIRA-7 Assessment Billing - SHAKIRA-7 Assessment Tool: SHAKIRA-7 Assessment 03802 ([id number]) PHQ-9 - 00162 - PHQ-9 Billing: Yes ([id number]) Assessment & Plan Assessment & Plan (1) Anemia: Code(s): D64.9 - Anemia, unspecified Category: Medical Plan: CHECK CBC AND IRON COUNT FOR FREQUENT AND HEAVY MENSES (2) Annual physical exam: Code(s): Z00.00 - Encounter for general adult medical examination without abnormal findings Category: Medical Plan: well balanced diet, regular exercise discussed with the patient. She is up-to-date with records and information manager for a Pap and pelvic exam and mammogram. Orders: Orders Complete Blood Count Auto Diff Today D64.9 - Anemia, unspecified IRON PROFILE Today D64.9 - Anemia, unspecified
== END 2024-09-10 11:58 | disposition home or self-care (01) ==
PROVIDERS: PCP Internal Medicine; Visit Provider Internal Medicine
DX: D64.9 Anemia, unspecified (principal); Z00.00 Encounter for general adult medical examination without abnormal findings

== ENCOUNTER → 2024-09-10 11:16 | Outpatient (BNVA) | payer OTHER, SELFPAY | PROVIDERS: PCP Internal Medicine; Visit Provider Internal Medicine | DX: Z00.00 Encounter for general adult medical examination without abnormal findings (principal); D64.9 Anemia, unspecified | CPT/HCPCS: 96127 ==

== ENCOUNTER 2024-09-15 09:56 | Outpatient (REF) | payer OTHER, SELFPAY ==
--- NOTE | ~2024-09-15 | MM_ITS ---
EXAMINATION: MM DIAGNOSTIC DIGITAL BREAST TOMOSYNTHESIS, BILATERAL CLINICAL INFORMATION: 1 year follow-up of grouped calcifications in the lower outer left breast. COMPARISON: Mammography: Comparison is made with relevant prior exams. TECHNIQUE: Digital breast mammography with tomosynthesis is performed in both the craniocaudal and mediolateral oblique views along with computer-aided detection (CAD). FINDINGS: The breasts are heterogeneously dense, which may obscure small masses (ACR BI-RADS breast composition Category c). Grouped punctate fine linear calcifications in the lower outer left breast are not significantly changed from prior magnification views dating back for one year. Bilateral circumscribed oval masses which wax and wane some were demonstrated to be simple cyst on prior ultrasound and represent benign fibrocystic changes. There are no significant pastora, or other abnormalities. Results are provided to the patient at time of visit by the technologist. MM/MM tomosynthesis diagnostic BI IMPRESSION: Right: Benign. Left: Grouped calcifications in the central to lower outer breast not significantly changed on magnification views dating back for one year. Recommend one-year follow-up diagnostic mammogram with magnification views to demonstrate 2 years of stability. ASSESSMENT: BI-RADS BI-RADS 3 - Probably benign finding(s) - 12 month follow-up suggested RECOMMENDATION: 12 month diagnostic follow up This patient's information was entered into a reminder system with a target due date for their next mammogram. Electronically signed by: Abby Gonzales DO 09/15/2024 10:40 AM [facility]
--- OUTSIDE RECORDS SUMMARY | 2024-09-15 09:59 | XMS_ITS | Patient Health Record ---
[facility] Address [address] [place] [address] Care Team Providers Care Oncology Physician Assistant Name Role Phone Zabrina Faye MD Primary Care Provider Kalli Menjivar Unavailable [phone] Allergies Allergen (clinical drug ingredient) Drug/Non Drug [...] X ray : Foot, right 3V 05/18/2016 [id number] 05/10/2017 24270- Debride <25 sq cm 05/24/2017 50882 I&D ABSCESS- SIMPLE,SINGLE 016 [id number] I&D ABSCESS- SIMPLE,SINGLE 017 [id number] I&D ABSCESS- SIMPLE,SINGLE 017 [id number] I&D ABSCESS- SIMPLE,SINGLE 017 Insurance Providers Payer Name Payer Address Payer Phone Subscriber Number Group Number Insured Name Patient Relationship to Insured Coverage Start Date Coverage End Date [facility] [address] [place] [address] [id number] [address], Jade Self - patient is the insured Medical (General) History Medical History History ICD Code Chicken pox Reflux Sciatica Broken bones Surgical History Surgery Date(Month/Year) appendectomy 2013 tonsillectomy 2012 Hospitalization History Reason Date(Month/Year) C for blood clot due to taking Seasoni que 07/2016 [facility] for blood clot 11/22/16
== END 2024-09-15 09:57 | disposition home or self-care (01) ==
LOC: HO.MAMMO 09:56
PROVIDERS: PCP Internal Medicine; Visit Provider Internal Medicine
DX: R92.1 Mammographic calcification found on diagnostic imaging of breast (principal)
CPT/HCPCS: 77062; 77066

== ENCOUNTER → 2024-09-15 10:15 | Outpatient (BNV) | payer OTHER, SELFPAY | PROVIDERS: PCP Internal Medicine; Visit Provider Internal Medicine | DX: R92.1 Mammographic calcification found on diagnostic imaging of breast (principal); R92.333 Mammographic heterogeneous density, bilateral breasts | CPT/HCPCS: 77062; 77066 ==

== ENCOUNTER 2024-11-26 14:15 | Outpatient (AMB) | payer OTHER, SELFPAY ==
--- NOTE | 2024-11-26 14:16 | MHC.OFFVIS ---
Vital Signs 11/26/24 14:20 Height 5 ft 3 in Weight 204 lb BMI 36.1 Intake Visit Reasons: Right knee pain and giving way Intake Note: Mrs. Galvan don'ts with complaints of progressively worsening right knee pain and giving way. The patient states that her symptoms have gotten worse over the last 10 years. Most of the pain is along the medial aspect of her knee. The patient states that her knee will give out several times per day. She has done a home exercise program for the last 3 months which she has failed. She has had difficulty exercising because of her pain. She also reports intermittent swelling in her right knee. She has failed the last 6 weeks of conservative treatment. Allergies amoxicillin [From AUGMENTIN] Adverse Reaction (Severe, Verified 11/26/24 14:20) DIARRHEA clavulanic acid [From AUGMENTIN] Adverse Reaction (Severe, Verified 11/26/24 14:20) DIARRHEA Augmentin Allergy (Unknown, Uncoded 11/26/24 14:20) nausea and vomiting dogs/mold/dust Allergy (Unknown, Uncoded 11/26/24 14:20) nka Medication List - Last Reconciled 11/26/24 by Yuri Thornton MD biotin 10,000 mcg PO DAILY cholecalciferol (vitamin D3) 125 mcg PO DAILY iron,carbonyl-vitamin C 65 mg iron- 125 mg (Vitron-C) 1 tab PO BEDTIME elbdlbixrndi-ijf-nwra-FA-vit K 45 mg iron- 800 mcg-120 mcg (Bariatric Multivitamins) caps PO DAILY vitamin B complex (B Complex-Vitamin B12 tablet) 1 tab PO DAILY zinc gluconate 30 mg PO DAILY [facility] Medical History Normal pelvic exam History of DVT (deep vein thrombosis) Factor V Leiden mutation Thyroid nodule Mixed hyperlipidemia Vitamin D deficiency PCOS (polycystic ovarian syndrome) Surgical History History of repair of hiatal hernia History of Lauren-en-Y gastric bypass S/P wisdom tooth extraction Hx of tonsillectomy Hx of appendectomy Family History Father Hypercholesteremia HTN (hypertension) Mother No problems noted. Sister No problems noted. 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 Housing: House Alcohol intake: current Alcohol intake frequency: holidays/special occasions only Patient Tobacco Use Status: Never used Tobacco e-Cigarette/Vaping Use: Never Used Second Hand Smoke Exposure: No (as a child) service: No Current occupational status: employed Cognitive needs: No Hearing needs: No Vision needs: No Female Reproductive History Menstrual Age of Menarche: 11 Physical Exam Vital Signs: BMI result Body Mass Index 36.1 Const Other: Well-nourished well-developed very friendly female awake alert and oriented x3 in no acute distress Extrem Other: Bilateral lower extremity examination shows good capillary refill, no skin lesions noted, normal sensation light touch Right knee examination shows a minimal effusion crepitus with range of motion tenderness along her medial and lateral joint lines, positive Elie's test stability Results Reviewed Results Reviewed: Standing full weight-bearing x-rays of the patient's right knee show mild diffuse joint space narrowing, no acute bony abnormalities MRI of the patient's right knee shows mild diffuse degenerative changes as well as tearing of her medial and lateral menisci Assessment & Plan Assessment & Plan (1) Tear of medial meniscus of right knee: Code(s): S83.241A - Other tear of medial meniscus, current injury, right knee, initial encounter Category: Medical Plan Ms. Galvan presents with progressively worsening right knee pain and mechanical symptoms due to tearing of her medial and lateral menisci. I had a lengthy discussion with the patient regarding the treatment options. At this point the patient has failed continued non operative treatments. The risks and benefits of right knee arthroscopic surgery were discussed at length with the patient. The patient wishes to proceed with surgery. Surgery will most likely involve right knee diagnostic arthroscopy with arthroscopic partial medial and lateral meniscectomies. The patient was given a prescription for oxycodone at her preoperative appointment. She will follow-up as instructed. Feel free to call me at any time should questions regarding her orthopedic management arise. I spent 22 minutes in reviewing the patient's records and imaging studies, seeing the patient and documenting in the medical record. Medications: New oxycodone Partial Fill upon patient request. 5 mg PO Q6H PRN 20 tabs 0RF pain Coding Level of Care Code Est Pt Level 3 (15484) Complex EM visit Add On G2211 Diagnoses Tear of medial meniscus of right knee S83.241A
[2024-11-26 14:20] VITALS: BMI 36.1
--- OUTSIDE RECORDS SUMMARY | 2024-11-26 17:10 | XMS_ITS | Patient Health Record ---
Author Organization [facility] Address [address] [place] [address] Care Team Providers Care Pocketed Spring Machine Operator Name Role Phone Zabrina Faye MD Primary Care Provider Kalli Menjivar Unavailable [phone] Allergies Allergen (clinical drug ingredient) Drug/Non Drug [...] X ray : Foot, right 3V 05/18/2016 [id number] 05/10/2017 67915- Debride <25 sq cm 05/24/2017 77114 I&D ABSCESS- SIMPLE,SINGLE 016 [id number] I&D ABSCESS- SIMPLE,SINGLE 017 [id number] I&D ABSCESS- SIMPLE,SINGLE 017 [id number] I&D ABSCESS- SIMPLE,SINGLE 017 Insurance Providers Payer Name Payer Address Payer Phone Subscriber Number Group Number Insured Name Patient Relationship to Insured Coverage Start Date Coverage End Date [facility] [address] [facility] [place] [address] [phone] [id number], Jade Self - patient is the insured Medical (General) History Medical History History ICD Code Chicken pox Reflux Sciatica Broken bones Surgical History Surgery Date(Month/Year) appendectomy 2013 tonsillectomy 2012 Hospitalization History Reason Date(Month/Year) C for blood clot due to taking Seasoni que 07/2016 [facility] for blood clot 11/22/16
== END 2024-11-26 14:35 | disposition home or self-care (01) ==
PROVIDERS: PCP Internal Medicine; Visit Provider Orthopaedic Surgery
DX: S83.241A Other tear of medial meniscus, current injury, right knee, initial encounter (principal)
CPT/HCPCS: 99213

== ENCOUNTER → 2024-12-05 06:04 | Outpatient (BNV) | payer OTHER, SELFPAY | PROVIDERS: PCP Internal Medicine; Visit Provider Orthopaedic Surgery | DX: S83.241A Other tear of medial meniscus, current injury, right knee, initial encounter (principal) | CPT/HCPCS: 29881 ==

== ENCOUNTER → 2024-12-05 06:04 | Day surgery (SDC) | payer OTHER, SELFPAY ==
--- NOTE | 2024-12-03 12:15 | HO.ANESPROP2 ---
Documented by User: Elana Crump NP 12/03/24 12:22 HPI - Anesthesia Eval Consult details Narrative: 44yo F for Right Knee Arthroscopy,with partial Lateral and Medial meniscectomy Factor V and hx DVT - no anticoag on med list PMFSH Active Problems Active Problems: All Active Problems Tear of medial meniscus of right knee (Acute) Right knee pain (Acute) Breast calcification seen on mammogram (Acute) Anemia (Acute) Sinusitis (Acute) Upper respiratory tract infection (Acute) Normal pelvic exam (Acute) Hx of abnormal cervical Pap smear (Acute ~09/24/06) Well woman exam with routine gynecological exam (Acute) Zinc deficiency (Acute) Vitamin B1 deficiency (Acute) Vitamin D deficiency (Acute) Pain of left calf (Acute) History of Lauren-en-Y gastric bypass (Acute) Obesity (BMI 30-39.9) (Acute) BMI 32.0-32.9,adult (Acute) Postoperative intestinal malabsorption (Acute) Thyroid nodule (Acute) Annual physical exam (Acute) Past Medical History Medical History Normal pelvic exam History of DVT (deep vein thrombosis) Factor V Leiden mutation Thyroid nodule Mixed hyperlipidemia Vitamin D deficiency PCOS (polycystic ovarian syndrome) Family History Family History Father Hypercholesteremia HTN (hypertension) Mother No problems noted. Sister No problems noted. 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 If so, by whom?: No Advance Directives: No Advance Directives Information Provided: Yes Recently lost weight without trying: No Nutrition Risks: Acute nausea or vomiting x1 week Patient : No service: No Current occupational status: employed Cognitive needs: No Hearing needs: No Vision needs: No Meds Allergies Allergy/AdvReac Type Severity Reaction Status Date / Time amoxicillin [From AUGMENTIN] AdvReac Severe DIARRHEA Verified 11/26/24 14:20 clavulanic acid AdvReac Severe DIARRHEA Verified 11/26/24 14:20 [From AUGMENTIN] Augmentin Allergy Unknown nausea and Uncoded 11/26/24 14:20 vomiting dogs/mold/dust Allergy Unknown nka Uncoded 11/26/24 14:20 Active Medications: Current Medications Clindamycin Phosphate (Cleocin) 900 mg in 50 mls @ 50 mls/hr IV PREOP ONE Stop: 12/05/24 06:08 Home Medications ?Medication ?Instructions ?Recorded ?Confirmed ?Last Taken ?Type biotin 10,000 mcg disintegrating 10,000 mcg PO DAILY 07/29/20 12/05/24 Unknown History tablet kpqlmgws-pojtofkk-geyt 45 mg-folic 1 cap PO DAILY 10/29/20 12/05/24 Unknown History acid 800 mcg-vit K 120 mcg capsule (Bariatric Multivitamins) vitamin B complex (B 1 tab PO DAILY 10/24/22 12/05/24 Unknown History Complex-Vitamin B12 tablet) Assessment and Plan Assessment Anesthesia Assessment: Chart Reviewed Documented by User: Johanny uHtchinson MD 12/05/24 08:23 [facility] Past Medical History Medical History Normal pelvic exam History of DVT (deep vein thrombosis) Factor V Leiden mutation Thyroid nodule Mixed hyperlipidemia Vitamin D deficiency PCOS (polycystic ovarian syndrome) Family History Family History Father Hypercholesteremia HTN (hypertension) Mother No problems noted. Sister No problems noted. 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 If so, by whom?: No Advance Directives: No Advance Directives Information Provided: Yes Recently lost weight without trying: No Nutrition Risks: Acute nausea or vomiting x1 week Patient : No service: No Current occupational status: employed Cognitive needs: No Hearing needs: No Vision needs: No Meds Allergies Allergy/AdvReac Type Severity Reaction Status Date / Time amoxicillin [From AUGMENTIN] AdvReac Severe DIARRHEA Verified 11/26/24 14:20 clavulanic acid AdvReac Severe DIARRHEA Verified 11/26/24 14:20 [From AUGMENTIN] Augmentin Allergy Unknown nausea and Uncoded 11/26/24 14:20 vomiting dogs/mold/dust Allergy Unknown nka Uncoded 11/26/24 14:20 Home Medications ?Medication ?Instructions ?Recorded ?Confirmed ?Last Taken ?Type biotin 10,000 mcg disintegrating 10,000 mcg PO DAILY 07/29/20 12/05/24 Unknown History tablet nbfdjyxw-phluhwik-jnxp 45 mg-folic 1 cap PO DAILY 10/29/20 12/05/24 Unknown History acid 800 mcg-vit K 120 mcg capsule (Bariatric Multivitamins) vitamin B complex (B 1 tab PO DAILY 10/24/22 12/05/24 Unknown History Complex-Vitamin B12 tablet) Exam Airway Mallampati Class: II TM Dist: >3cm Neck ROM: Full Heart: rrr Lungs: cta Assessment and Plan Assessment Anesthesia Assessment: Anesthesia Plan Discussed Final Anesthetic Review Family History of Problems with Anesthesia: No History of Problems with Anesthesia: No NPO: Yes ASA Class: II Final Preanesthetic Review: No Changes in Pt Med Stat, Meds/Allgs Chart Reviewed, Consent Obtained/Reviewed and Anes Risks/Benef Reviewed Patient Risk: Low Procedure Risk: Low Anesthetic Plan Anesthetic Plan: GA Disposition: Standard PACU
[2024-12-03 13:15] VITALS: BMI 36.1
[2024-12-05] VITALS (7 sets, daily range): BP systolic 118–132; BP diastolic 69–80; PULSE 71–85; RESP 12–18; TEMP 36.1–36.6; O2SAT 97–98; BMI 38.0
[2024-12-05 06:31] LABS: UPreg QC Valid YES; Urine Pregnancy NEGATIVE (NEGATIVE)
[2024-12-05] MEDS: Lactated Ringers 1,000 ML 100 ML IVCONT (06:46)
[2024-12-05] MEDS: Clindamycin Phosphate/D5W 900 MG/50 ML PIGGYBACK 50 MG IV (07:30)
[2024-12-05] MEDS: Acetaminophen 1,000 MG/100 ML PIGGYBACK 400 MG IV (07:30)
--- NOTE | 2024-12-05 08:40 | P.BOP_ITS ---
Brief Operative Note Date of Service: 12/05/24 Pre-op diagnosis: Right knee medial meniscus tear, right knee degenerative joint disease, right knee lateral meniscus tear Post-op diagnosis: other (Right knee medial meniscus tear, right knee degenerative joint disease) Procedure: Right knee diagnostic arthroscopy with arthroscopic partial medial meniscectomy, right knee arthroscopic chondroplasty of the undersurface of the patella, trochlear groove and medial femoral condyle Implants: none Surgeon: Yuri Thornton MD Anesthesia: GLMA Was an [employer] Exchange Wireless Manager used for this Procedure?: No Estimated blood loss (mL): 10 Pathology: none sent Condition: stable Disposition: PACU
--- NOTE | 2024-12-05 08:41 | W.PM.OPN ---
Operative Note Operative Note Date of Service: 12/05/24 Narrative: After the patient was identified as Jade Galvan and her right knee was initialed by myself they were brought to the operating room where general anesthesia was induced by the anesthesiologist in routine fashion. Because of the patient's allergy to amoxicillin she was given 900 mg of IV clindamycin for infection prophylaxis. A formal time-out was completed. The patient's right lower extremity was prepped and draped in sterile fashion. Marcaine with epinephrine was injected into the planned incision sites as well as their right knee joint. A # 11 scalpel blade was used to make an anterolateral portal 1 cm proximal to the joint line and 1 cm lateral to the patellar tendon. Blunt trocar technique was used into the suprapatellar pouch with the knee in extension. Diagnostic arthroscopy showed multiple bands of thickened plica which would be excised at the end of the procedure. There were no loose bodies or abnormalities found in either the medial or lateral gutters. There were diffuse grades 1 and 2 degenerative changes of the undersurface of the patella as well as grades 2 and 3 degenerative changes of the trochlear groove. The patient's knee was flexed to 45 degrees and a valgus force was placed upon it. The medial compartment was entered. An anteromedial portal was made 1 cm proximal to the joint line and 1 cm medial to the patellar tendon. Probing of the medial meniscus showed a radial tear of the posterior horn. A partial medial meniscectomy was performed using the arthroscopic shaver. Following the partial meniscectomy the remainder of the meniscus tissue was stable. There were diffuse grades 1 and 2 degenerative changes of the medial femoral condyle as well as diffuse grade 1 degenerative changes of the medial tibial plateau. The articular surface of the medial femoral condyle was made smooth using the arthroscopic shaver. The articular surface of the medial tibial plateau was already smooth so no chondroplasty was indicated. The patient's knee was then placed into a neutral position. There was no injury to the anterior cruciate ligament. The patient's knee was then placed into the figure of 4 position and the lateral compartment was entered. There were minimal degenerative changes of the lateral femoral condyle and lateral tibial plateau. There was no evidence of lateral meniscus tearing. The patient's knee was once again brought into extension and the suprapatellar pouch was entered. The arthroscopic shaver and the ArthroCare Wand were used to excise the thickened bands of plica. The undersurface of the patella and the trochlear groove articular surface were made smooth using the arthroscopic shaver. The knee joint was irrigated and then drained. All arthroscopic instruments were removed. The 2 portals were closed with 3-0 nylon interrupted suture. The knee joint was injected with Marcaine. Dry sterile dressing and Oneal bandages were placed over the patient's knee. The patient was awoken and extubated in the operating room. They were transferred to the recovery room in stable condition.
== END | disposition home or self-care (01) ==
PROVIDERS: Nurse Practitioner; PCP Internal Medicine; Visit Provider Orthopaedic Surgery
PROC: (CPT 29870; principal; 2024-12-05 07:30)
DX: S83.241A Other tear of medial meniscus, current injury, right knee, initial encounter (principal); M17.11 Unilateral primary osteoarthritis, right knee; M25.561 Pain in right knee; M25.461 Effusion, right knee; M23.51 Chronic instability of knee, right knee; M67.51 Plica syndrome, right knee; X58.XXXA Exposure to other specified factors, initial encounter; Y93.9 Activity, unspecified; Y92.9 Unspecified place or not applicable; Y99.9 Unspecified external cause status; Z86.718 Personal history of other venous thrombosis and embolism; E55.9 Vitamin D deficiency, unspecified; D68.51 Activated protein C resistance; Z79.899 Other long term (current) drug therapy; Z88.1 Allergy status to other antibiotic agents; Z98.84 Bariatric surgery status; Z98.890 Other specified postprocedural states
CPT/HCPCS: 29881; 81025; J0131; J0171; J0736; J2250; J2795; J3010

== ENCOUNTER 2024-12-18 13:25 | Outpatient (AMB) | payer OTHER, SELFPAY ==
--- NOTE | 2024-12-18 13:32 | A.OFFVIS_ITS ---
Intake Visit Reasons: PO-Rt Knee 12/05/24 DR Intake Note: Jade is a 44 year old female who presents today for her first post operative appointment 2 weeks s/p Right Knee Arthroscopy 12/05/[address] Thornton. She reports she is feeling overall well. She said she feels clicking and popping on the right side of the knee with every step she takes. She is wondering if physical therapy will help with that. Mud Temperer Required: No Allergies amoxicillin [From AUGMENTIN] Adverse Reaction (Severe, Verified 12/18/24 13:34) DIARRHEA clavulanic acid [From AUGMENTIN] Adverse Reaction (Severe, Verified 12/18/24 13:34) DIARRHEA Augmentin Allergy (Unknown, Uncoded 12/18/24 13:34) nausea and vomiting dogs/mold/dust Allergy (Unknown, Uncoded 12/18/24 13:34) nka Medication List - Last Reconciled 12/18/24 by Sarai Kwok RN biotin 10,000 mcg PO DAILY cholecalciferol (vitamin D3) 125 mcg PO DAILY iron,carbonyl-vitamin C 65 mg iron- 125 mg (Vitron-C) 1 tab PO BEDTIME dafunrrvyrjk-jfo-tkjx-FA-vit K 45 mg iron- 800 mcg-120 mcg (Bariatric Multivitamins) 1 cap PO DAILY oxycodone 5 mg PO Q6H PRN vitamin B complex (B Complex-Vitamin B12 tablet) 1 tab PO DAILY zinc gluconate 30 mg PO DAILY HPI HPI PO-Rt Knee 12/05/24 DR: Details: 44 yo female presents to the office today sp Rt knee 12/05/[address] Thornton . She continues to do well post op, has some discomfort with prolonged walking or stairs. C/o crunching sensation. [facility] Medical History Normal pelvic exam History of DVT (deep vein thrombosis) Factor V Leiden mutation Thyroid nodule Mixed hyperlipidemia Vitamin D deficiency PCOS (polycystic ovarian syndrome) Surgical History History of repair of hiatal hernia History of Lauren-en-Y gastric bypass S/P wisdom tooth extraction Hx of tonsillectomy Hx of appendectomy Family History Father Hypercholesteremia HTN (hypertension) Mother No problems noted. Sister No problems noted. 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 Housing: House Alcohol intake: current Alcohol intake frequency: holidays/special occasions only Patient Tobacco Use Status: Former Tobacco user e-Cigarette/Vaping Use: Never Used Second Hand Smoke Exposure: No (as a child) service: No Current occupational status: employed Cognitive needs: No Hearing needs: No Vision needs: No Female Reproductive History Menstrual Age of Menarche: 11 Review of Systems Const All systems reviewed & are unremarkable except as noted in HPI and below Physical Exam Const General: cooperative and no acute distress Orientation/consciousness: patient oriented x3 Resp Effort & Inspection: normal respiratory effort and able to speak in complete sentences Cardio Peripheral pulses: Peripheral pulses 2+ throughout Neuro General: patient oriented x3 Extrem Other: Right knee incision clean, dry and intact. No erythema or joint effusion. ROM 0- 95, calf supple non tendern. NVI. Results Reviewed Results Reviewed: Brief Operative Note Date of Service: 12/05/24 Pre-op diagnosis: Right knee medial meniscus tear, right knee degenerative joint disease, right knee lateral meniscus tear Post-op diagnosis: other (Right knee medial meniscus tear, right knee degenerative joint disease) Procedure: Right knee diagnostic arthroscopy with arthroscopic partial medial meniscectomy, right knee arthroscopic chondroplasty of the undersurface of the patella, trochlear groove and medial femoral condyle Implants: none Surgeon: Yuri Thornton MD Assessment & Plan Assessment & Plan (1) Tear of medial meniscus of right knee: Code(s): S83.241A - Other tear of medial meniscus, current injury, right knee, initial encounter Category: Medical Plan: Sutures removed today, steri strips applied. An order for PT was placed for ROm and strengh. She will avoid deep bendin, kneeling, squatting and twisting motions for the next 4-6 weeks. She can increase activities as tolerated, she will return in [address] Thornton, sooner if needed. Coding Level of Care Code Global (55991) Diagnoses Tear of medial meniscus of right knee S83.241A
--- OUTSIDE RECORDS SUMMARY | 2024-12-18 16:42 | XMS_ITS | Patient Health Record ---
Author Organization [facility] Address [address] [place] [address] Care Team Providers Care Drier Attendant Name Role Phone Zabrina Faye MD Primary Care Provider Kalli Menjivar Unavailable [phone] Allergies Allergen (clinical drug ingredient) Drug/Non Drug [...] X ray : Foot, right 3V 05/18/2016 [id number] 05/10/2017 25320- Debride <25 sq cm 05/24/2017 22377 I&D ABSCESS- SIMPLE,SINGLE 016 [id number] I&D ABSCESS- SIMPLE,SINGLE 017 [id number] I&D ABSCESS- SIMPLE,SINGLE 017 [id number] I&D ABSCESS- SIMPLE,SINGLE 017 Insurance Providers Payer Name Payer Address Payer Phone Subscriber Number Group Number Insured Name Patient Relationship to Insured Coverage Start Date Coverage End Date [facility] [address] [facility] [place] [address] [id number], Jade Self - patient is the insured Medical (General) History Medical History History ICD Code Chicken pox Reflux Sciatica Broken bones Surgical History Surgery Date(Month/Year) appendectomy 2013 tonsillectomy 2012 Hospitalization History Reason Date(Month/Year) C for blood clot due to taking Seasoni que 07/2016 [facility] for blood clot 11/22/16
== END 2024-12-18 14:10 | disposition home or self-care (01) ==
LOC: HO.HOS 13:26
PROVIDERS: PCP Internal Medicine; Visit Provider Physician Assistant
DX: S83.241A Other tear of medial meniscus, current injury, right knee, initial encounter (principal)
CPT/HCPCS: 99024

== ENCOUNTER → 2024-12-18 13:25 | Outpatient (BNVA) | payer OTHER, SELFPAY | PROVIDERS: PCP Internal Medicine; Visit Provider Physician Assistant ==

== ENCOUNTER 2025-01-20 14:02 | Outpatient (AMB) | payer OTHER, SELFPAY ==
--- NOTE | 2025-01-20 14:06 | MHC.OFFVIS ---
Intake Visit Reasons: PO-Rt Knee 12/05/24 DR Intake Note: Jade is a 44 year old female who presents mild intermittent discomfort in her right knee after undergoing right knee arthroscopic surgery on 12/05/2024. She continues with her physical therapy. She denies any fevers or chills. She would like to return to work over the next few weeks. Allergies amoxicillin [From AUGMENTIN] Adverse Reaction (Severe, Verified 01/20/25 14:14) DIARRHEA clavulanic acid [From AUGMENTIN] Adverse Reaction (Severe, Verified 01/20/25 14:14) DIARRHEA Augmentin Allergy (Unknown, Uncoded 01/20/25 14:14) nausea and vomiting dogs/mold/dust Allergy (Unknown, Uncoded 01/20/25 14:14) nka Medication List - Last Reconciled 01/20/25 by Yuri Thornton MD biotin 10,000 mcg PO DAILY cholecalciferol (vitamin D3) 125 mcg PO DAILY iron,carbonyl-vitamin C 65 mg iron- 125 mg (Vitron-C) 1 tab PO BEDTIME dxqbyxeyabus-jyn-mkit-FA-vit K 45 mg iron- 800 mcg-120 mcg (Bariatric Multivitamins) 1 cap PO DAILY vitamin B complex (B Complex-Vitamin B12 tablet) 1 tab PO DAILY zinc gluconate 30 mg PO DAILY [facility] Medical History Normal pelvic exam History of DVT (deep vein thrombosis) Factor V Leiden mutation Thyroid nodule Mixed hyperlipidemia Vitamin D deficiency PCOS (polycystic ovarian syndrome) Surgical History (Reviewed 01/20/25 @ 14:14 by Shruti Lopez [facility]) History of repair of hiatal hernia History of Lauren-en-Y gastric bypass S/P wisdom tooth extraction Hx of tonsillectomy Hx of appendectomy Family History Father Hypercholesteremia HTN (hypertension) Mother No problems noted. Sister No problems noted. 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 Housing: House Alcohol intake: current Alcohol intake frequency: holidays/special occasions only Patient Tobacco Use Status: Former Tobacco user e-Cigarette/Vaping Use: Never Used Second Hand Smoke Exposure: No (as a child) service: No Current occupational status: employed Cognitive needs: No Hearing needs: No Vision needs: No Female Reproductive History Menstrual Age of Menarche: 11 Physical Exam Extrem Other: Right knee examination shows that the surgical incisions are well healed, no erythema, minimal crepitus with range of motion, mild discomfort with range of motion, no instability Assessment & Plan Assessment & Plan (1) Right knee pain: Code(s): M25.561 - Pain in right knee Category: Medical Plan Jade continues to do well after undergoing right knee arthroscopic surgery on 12/05/2024. She will continue with her physical therapy exercises. She will gradually progress to activities as tolerated. I will clear her to return to work once her discomfort has improved. She will contact me prior to her follow-up appointment in 3 months should any questions or concerns arise. Feel free to call me at any time should questions regarding her orthopedic management arise. Coding Level of Care Code Global (76984) Diagnoses Right knee pain M25.561
--- OUTSIDE RECORDS SUMMARY | 2025-01-20 16:14 | XMS_ITS | Patient Health Record ---
[facility] Organization [facility] Address [address] [place] [address] Care Team Providers Care Sewer Bricklayer Name Role Phone Zabrina Faye MD Primary Care Provider Kalli Menjivar Unavailable [phone] Allergies Allergen (clinical drug ingredient) Drug/Non Drug [...] X ray : Foot, right 3V 05/18/2016 [id number] 05/10/2017 68085- Debride <25 sq cm 05/24/2017 77350 I&D ABSCESS- SIMPLE,SINGLE 016 [id number] I&D ABSCESS- SIMPLE,SINGLE 017 [id number] I&D ABSCESS- SIMPLE,SINGLE 017 [id number] I&D ABSCESS- SIMPLE,SINGLE 017 Insurance Providers Payer Name Payer Address Payer Phone Subscriber Number Group Number Insured Name Patient Relationship to Insured Coverage Start Date Coverage End Date [facility] [address] [facility] [place] [address] [phone] [id number], Jade Self - patient is the insured Medical (General) History Medical History History ICD Code Chicken pox Reflux Sciatica Broken bones Surgical History Surgery Date(Month/Year) appendectomy 2013 tonsillectomy 2012 Hospitalization History Reason Date(Month/Year) C for blood clot due to taking Seasoni que 07/2016 [facility] for blood clot 11/22/16
== END 2025-01-20 14:29 | disposition home or self-care (01) ==
LOC: HO.HOS 14:03
PROVIDERS: PCP Internal Medicine; Visit Provider Orthopaedic Surgery
DX: M25.561 Pain in right knee (principal)
CPT/HCPCS: 99024

== ENCOUNTER 2025-01-28 13:00 | Outpatient (RCR) | payer OTHER, SELFPAY ==
--- NOTE | 2025-01-14 13:41 | MHC.PT.EP ---
[facility] [place] [facility] [place] [facility] [place] Office [address] Renato Prieto [address] [phone] F: [phone] F: [phone] F: [phone] F: [phone] Physical Therapy Plan of Care Date of Evaluation: 01/14/25 Date of Surgery: 12/05/2024 Diagnosis: s/p 12/05 tear of medial meniscus R Assessment: Patient is a 44 year old female presenting to PT s/p R medial menisectomy on 12/05/2024. She presents today with impairments in pain, knee ROM, hip strength, knee strength. 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 Pt expresses fdc goal of returning to PLOF, and is motivated to work towards this in PT. Clinical presentation today is most consistent with signs and sx associated with s/p R medial menisectomy on 12/05 and pt will benefit from skilled PT 2 week x 4 weeks to address the following problems and impairments noted upon evaluation: pain, knee ROM, hip strength, knee strength. These problems limit the patient with the following functional activities: ambulating, stair negotiation, ADLs, work. The prescribed treatment plan of care is medically necessary. Co-morbidities of hx blood clot not on blood thinners were identified and taken into considerations of plan of care. Pt was educated on HEP, role of PT, prognosis, POC. Frequency and Duration: The patient will be seen 2 x week x 4 weeks Short Term Goals: Pt will demonstrate symmetrical knee ROM in 2 weeks. Pt will demonstrate R knee MMT strength 5/5 in 2 weeks. Pt will demonstrate improved B hip strength by 1/3 grade in 2 weeks. Fci Goals: Pt will demonstrate improved LEFI score by 9 points in 4 weeks for improved functional mobility. Pt will demonstrate ability to ambulate with min to no pain in 4 weeks for return to PLOF. Pt will demonstrate ability to negotiate stairs with min to no pain in 4 weeks for improved access to her home and prepare for return to work. Treatment Plan: Modalities to reduce pain, spasms and effusion. Manual therapy to restore motion and function. Therapeutic exercise to improve strength and flexibility. Neuromuscular re-education for posture and balance. Therapeutic activities to return to functional activities of daily living. Electronically signed by: Nevin Stevens, PT, DPT, ATC Please sign and return to therapist. Thank you for your referral.
--- NOTE | 2025-03-09 07:50 | MHC.PT.DC ---
[place] Office [place] Office [place] Office [address] Mona Prieto [address] [phone] F: [phone] F: [phone] F: [phone] F: [phone] Physical Therapy Discharge Report Diagnosis: s/p 12/05 tear of medial meniscus R Date of Surgery: 12/05/2024 Date of Evaluation: 01/14/25 Date of Discharge: 03/09/25 Treatments to Date: 4 Cancellations to Date: 3 No Shows to Date: 0 Discharge Status: Patient Elected to Stop Discharge Summary: Pt has not attended skilled PT in >30 days therefore to be d/c per policy. Electronically signed by: Nevin Stevens, PT, DPT, ATC Please sign and return to therapist. Thank you for your referral.
== END 2025-03-09 07:50 | disposition home or self-care (01) ==
LOC: HO.PTCHIC 13:00
PROVIDERS: PCP Internal Medicine; Visit Provider Physician Assistant
DX: S83.241A Other tear of medial meniscus, current injury, right knee, initial encounter (principal)
CPT/HCPCS: 97110; 97161

== ENCOUNTER 2025-01-28 13:50 | Outpatient (REF) | payer OTHER, SELFPAY ==
--- OUTSIDE RECORDS SUMMARY | 2025-01-28 15:09 | XMS_ITS | Patient Health Record ---
Author Organization [facility] Address [address] [place] [address] Care Team Providers Care Steno Typist Name Role Phone Zabrina Faye MD Primary Care Provider Kalli Menjivar Unavailable [phone] Allergies Allergen (clinical drug ingredient) Drug/Non Drug [...] X ray : Foot, right 3V 05/18/2016 [id number] 05/10/2017 10980- Debride <25 sq cm 05/24/2017 43077 I&D ABSCESS- SIMPLE,SINGLE 016 [id number] I&D ABSCESS- SIMPLE,SINGLE 017 [id number] I&D ABSCESS- SIMPLE,SINGLE 017 [id number] I&D ABSCESS- SIMPLE,SINGLE 017 Insurance Providers Payer Name Payer Address Payer Phone Subscriber Number Group Number Insured Name Patient Relationship to Insured Coverage Start Date Coverage End Date [facility] [address] [facility] [place] [address] [phone] [id number], Jaed Self - patient is the insured Medical (General) History Medical History History ICD Code Chicken pox Reflux Sciatica Broken bones Surgical History Surgery Date(Month/Year) appendectomy 2013 tonsillectomy 2012 Hospitalization History Reason Date(Month/Year) C for blood clot due to taking Seasoni que 07/2016 [facility] for blood clot 11/22/16
--- OUTSIDE RECORDS SUMMARY | 2025-01-28 15:09 | XMS_ITS | Continuity of Care Document ---
Author Organization [facility] Address [address] [place] [address] Phone Care Team Providers Care Mortgage Assistant Name Role Phone Tristan Li Unavailable Unavailable [...] Providers Copied on Encounter [facility], [address], [place], [id number], [place] tel:[phone] [facility] - [place], non-neoplas ticPersonal history of other venous thrombosis and embolism 4 Shaina Hudson. [address], [address], [facility] [place], [id number], [place]. tel:[phone] Family History Family Member Type Diagnosis Age [...]
[2025-01-28 16:14] LABS: MANUAL DIFF FLAG NO
[2025-01-28 16:22] LABS: Basophils Absolute Auto 0.1 X10*3/uL (0.0-0.2); Basophils Percent Auto 1.1 % (0-2); Eosinophils Absolute Auto 0.1 X10*3/uL (0.0-0.4); Eosinophils Percent Auto 2.2 % (0-4); Hematocrit 35.8 % (37.0-47.0); Hemoglobin 11.5 g/dl (12.0-16.0); Imm Gran Abs Auto 0.01 X10*3/uL (0.00-0.03); Imm Gran Pct Auto 0.2 % (0.0-0.4); Lymphocytes Absolute Auto 1.7 X10*3/uL (1.2-4.9); Mean Corpuscular HGB Conc 32.1 g/dl (31.0-35.0); Mean Corpuscular Volume 90.2 fL (80.0-98.0); Mean Platelet Volume 10.6 fL (9.4-12.3); Monocytes Absolute Auto 0.3 X10*3/uL (0.1-1.2); Monocytes Percent Auto 6.1 % (2-11); Neutrophils Absolute Auto 3.4 x10*3/uL (2.0-8.3); Neutrophils Percent Auto 60.4 % (45-73); Platelet Count 285 X10*3/uL (160-400); Red Blood Count 3.97 X10*6/uL (4.20-5.50); Red Cell Distribution Width 13.5 % (11.0-16.0); White Blood Count 5.5 X10*3/uL (4.8-10.8)
[2025-01-28 16:47] LABS: Iron 52 mcg/dL (30-160); Percent Iron Saturation 17 % (15-50); Total Iron Binding Capacity 315 mcg/dL (228-428); Unsaturated Iron Binding 263 ug/dL
== END 2025-01-28 13:51 | disposition home or self-care (01) ==
LOC: HO.HMGCLDS 13:50
PROVIDERS: PCP Internal Medicine; Visit Provider Internal Medicine
DX: D64.9 Anemia, unspecified (principal)
CPT/HCPCS: 36415; 83540; 85025

== ENCOUNTER 2025-03-17 11:42 | Outpatient (AMB) | payer OTHER, SELFPAY ==
--- NOTE | 2025-03-17 11:50 | A.OFFVIS_ITS ---
Vital Signs 03/17/25 11:51 Height 5 ft 3 in Weight 214 lb BMI 37.9 Intake Visit Reasons: OV-Rt Knee 12/05/24 DR Intake Note: Jade is a 44 year old female who presents for follow up after undergoing right knee arthroscopic surgery on 12/05/2024. She reports mild to moderate intermittent discomfort in her right knee. She has had cortisone injections in the past which gave her minimal relief. She has not had a viscosupplementation injection. She has tried Tylenol and anti-inflammatory medicines which gave her minimal relief. Allergies amoxicillin (From AUGMENTIN) Adverse Reaction (Severe, Verified 03/17/25 11:51) DIARRHEA clavulanic acid (From AUGMENTIN) Adverse Reaction (Severe, Verified 03/17/25 11:51) DIARRHEA Augmentin Allergy (Unknown, Uncoded 03/17/25 11:51) nausea and vomiting dogs/mold/dust Allergy (Unknown, Uncoded 03/17/25 11:51) nka Medication List - Last Reconciled 03/17/25 by Yuri Thornton MD biotin 10,000 mcg PO DAILY cholecalciferol (vitamin D3) 125 mcg PO DAILY iron,carbonyl-vitamin C 65 mg iron- 125 mg (Vitron-C) 1 tab PO BEDTIME eakijdczhtwt-wfz-lcoj-FA-vit K 45 mg iron- 800 mcg-120 mcg (Bariatric Multivitamins) 1 cap PO DAILY vitamin B complex (B Complex-Vitamin B12 tablet) 1 tab PO DAILY zinc gluconate 30 mg PO DAILY [facility] Medical History Normal pelvic exam History of DVT (deep vein thrombosis) Factor V Leiden mutation Thyroid nodule Mixed hyperlipidemia Vitamin D deficiency PCOS (polycystic ovarian syndrome) Surgical History History of repair of hiatal hernia History of Lauren-en-Y gastric bypass S/P wisdom tooth extraction Hx of tonsillectomy Hx of appendectomy Family History Father Hypercholesteremia HTN (hypertension) Mother No problems noted. Sister No problems noted. 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 Housing: House Alcohol intake: current Alcohol intake frequency: holidays/special occasions only Patient Tobacco Use Status: Former Tobacco user e-Cigarette/Vaping Use: Never Used Second Hand Smoke Exposure: No (as a child) service: No Current occupational status: employed Cognitive needs: No Hearing needs: No Vision needs: No Female Reproductive History Menstrual Age of Menarche: 11 Physical Exam Vital Signs: BMI result Body Mass Index 37.9 Const Other: Well-nourished well-developed very friendly female awake alert and oriented x3 in no acute distress Extrem Other: Bilateral lower extremity examination shows good capillary refill, no skin lesions noted, normal sensation light touch Right knee examination shows that the surgical incisions are well healed, no erythema, mild crepitus with range of motion, no instability Assessment & Plan Assessment & Plan (1) Osteoarthritis of right knee: Code(s): M17.11 - Unilateral primary osteoarthritis, right knee Category: Medical Plan Ms. Galvan continues to do fairly well after undergoing right knee arthroscopic surgery on 12/05/2024. She does have residual discomfort due to osteoarthritis. At this point the patient's symptoms are tolerable to her. If her symptoms do worsen I will see whether or not her insurance company will cover a viscosupplementation injection such as Durolane. She will continue with her activity modifications in the meantime. Feel free to call me at any time should questions regarding her orthopedic management arise. I spent 20 minutes in reviewing the patient's records and imaging studies, seeing the patient and documenting in the medical record. Coding Level of Care Code Est Pt Level 3 (56718) Complex EM visit Add On G2211 Diagnoses Osteoarthritis of right knee M17.11
[2025-03-17 11:51] VITALS: BMI 37.9
--- OUTSIDE RECORDS SUMMARY | 2025-03-17 13:25 | XMS_ITS | Patient Health Record ---
Author Organization [facility] Address [address] [place] [address] Care Team Providers Care Certified First Assistant Name Role Phone Zabrina Faye MD Primary Care Provider Kalli Menjivar Unavailable [phone] Allergies Allergen (clinical drug ingredient) Drug/Non Drug [...] X ray : Foot, right 3V 05/18/2016 [id number] 05/10/2017 11868- Debride <25 sq cm 05/24/2017 24558 I&D ABSCESS- SIMPLE,SINGLE 016 [id number] I&D ABSCESS- SIMPLE,SINGLE 017 [id number] I&D ABSCESS- SIMPLE,SINGLE 017 [id number] I&D ABSCESS- SIMPLE,SINGLE 017 Insurance Providers Payer Name Payer Address Payer Phone Subscriber Number Group Number Insured Name Patient Relationship to Insured Coverage Start Date Coverage End Date [facility] [address] [place] [address] [id number], Jade Self - patient is the insured Medical (General) History Medical History History ICD Code Chicken pox Reflux Sciatica Broken bones Surgical History Surgery Date(Month/Year) appendectomy 2013 tonsillectomy 2012 Hospitalization History Reason Date(Month/Year) C for blood clot due to taking Seasoni que 07/2016 [facility] for blood clot 11/22/16
== END 2025-03-17 12:14 | disposition home or self-care (01) ==
PROVIDERS: PCP Internal Medicine; Visit Provider Orthopaedic Surgery
DX: M17.11 Unilateral primary osteoarthritis, right knee (principal)
CPT/HCPCS: 99213; G2211

== ENCOUNTER 2025-07-08 11:15 | Outpatient (AMB) | payer OTHER, SELFPAY ==
[2025-07-08 11:30] VITALS: BP 112/74; PULSE 79; RESP 18; TEMP 36.7; O2SAT 98; BMI 32.9
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
--- OUTSIDE RECORDS SUMMARY | 2025-07-08 13:56 | XMS_ITS | Patient Health Record ---
Author Organization [facility] Address [address] [place] [address] Care Team Providers Care Supervisor Customer Records Division Name Role Phone Zabrina Faye MD Primary Care Provider Kalli Menjivar Unavailable [phone] Allergies Allergen (clinical drug ingredient) Drug/Non Drug [...] . . . Pt had a randi edubrendan appointment today; Duration: . 02/23/2017 Not-Taking Cephalexin 500 MG 1 tablet Orally Twic e a day; Duration: 7 days Not-Taking Keflex 500 MG 1 capsule Orally roldan ry 12 hrs; Duration: 7 days 05/18/2016 Not-Benoit ing Vitamin D Active Seasonique Not-Takin g Vitamin B-12 Active Omeprazole 20 MG 2 capsules Orally On ce a day Not-Taking buPROPion HCl ER (SR) 150 MG 1 tablet in the morning Orally Once a day Not-Taking Xarelto 20 MG 1 tablet with food Orally Once a day Not-Taking Acetaminophen-Codeine 300-15 MG 1 tablet as needed Orally every 6 hrs; Duration: as needed 05/10/2017 Not-Taking Cephalexin 500 MG 1 tablet Orally ever y 12 hrs; Duration: 7 days 05/10/2017 Not-Taking Cephalexin 500 MG 1 tablet Orally Twic e a day; Duration: 7 days Not-Taking Social History Tobacco use other than smoking: Question Answer Notes Are you an other tobacco user? No Problems No Known Problems Plan Of Treatment Pending Test Test Name Order Date X ray : Ankle, right 2V 05/18/2016 X ray : Foot, right 3V 05/18/2016 [id number] 05/10/2017 09861- Debride <25 sq cm 05/24/2017 52314 I&D ABSCESS- SIMPLE,SINGLE 016 [id number] I&D ABSCESS- SIMPLE,SINGLE 017 [id number] I&D ABSCESS- SIMPLE,SINGLE 017 [id number] I&D ABSCESS- SIMPLE,SINGLE 017 Insurance Providers Payer Name Payer Address Payer Phone Subscriber Number Group Number Insured Name Patient Relationship to Insured Coverage Start Date Coverage End Date [facility] [address] [facility] [place] [id number] [phone] [id number] Jade Wallis Self - patient is the insured Medical (General) History Medical History History ICD Code Chicken pox Reflux Sciatica Broken bones Surgical History Surgery Date(Month/Year) appendectomy 2013 tonsillectomy 2012 Hospitalization History Reason Date(Month/Year) C for blood clot due to taking Seasoni que 07/2016 [facility] for blood clot 11/22/16
== END 2025-07-08 12:36 | disposition home or self-care (01) ==
PROVIDERS: PCP Internal Medicine; Visit Provider Internal Medicine
DX: M54.50 Low back pain, unspecified (principal); G89.29 Other chronic pain; M54.2 Cervicalgia

== ENCOUNTER → 2025-07-08 11:15 | Outpatient (BNVA) | payer OTHER, SELFPAY | PROVIDERS: PCP Internal Medicine; Visit Provider Internal Medicine | DX: M54.2 Cervicalgia (principal); M54.50 Low back pain, unspecified; E51.9 Thiamine deficiency, unspecified; E55.9 Vitamin D deficiency, unspecified; G89.29 Other chronic pain | CPT/HCPCS: 96127 ==

== ENCOUNTER 2025-07-27 10:29 | Outpatient (AMB) | payer OTHER, SELFPAY ==
--- OUTSIDE RECORDS SUMMARY | 2024-01-15 10:00 | XMS_ITS | Continuity of Care Document ---
Author Organization [facility] Address [address] [place] [phone] Phone Care Team Providers Care Paperboard Boxes Estimator Name Role Phone Tristan Li Unavailable Unavailable [...] Providers Copied on [facility]counter [facility], [address], [place], [id number], [place] tel:[phone] [facility] - [place] - [place] Nevus, non-neoplas ticPersonal history of other venous thrombosis and embolism 4 Shaina Hudson. [address], [address], [facility] [place], [id number], [place]. tel:[phone] Family History Family Member Type Diagnosis Age At Onset No Information Payers Payer name Insurance type Covered libertarian ID Authoriza tion(s) Self Pay 09 Social [...]
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
[2025-07-27 10:47] VITALS: BP 160/77; PULSE 79; TEMP 35.9; O2SAT 98; BMI 32.3
--- OUTSIDE RECORDS SUMMARY | 2025-07-27 12:41 | XMS_ITS | Patient Health Record ---
Author Organization [facility] Address [address] [place] [address] Care Team Providers Care Potline Monitor Name Role Phone Zabrina Faye MD Primary Care Provider Kalli Menjivar Unavailable [phone] Allergies Allergen (clinical drug ingredient) Drug/Non Drug [...] X ray : Foot, right 3V 05/18/2016 [id number] 05/10/2017 65152- Debride <25 sq cm 05/24/2017 45463 I&D ABSCESS- SIMPLE,SINGLE 016 [id number] I&D ABSCESS- SIMPLE,SINGLE 017 [id number] I&D ABSCESS- SIMPLE,SINGLE 017 [id number] I&D ABSCESS- SIMPLE,SINGLE 017 Insurance Providers Payer Name Payer Address Payer Phone Subscriber Number Group Number Insured Name Patient Relationship to Insured Coverage Start Date Coverage End Date [facility] [address] [facility] [place] [id number] [phone] [id number] Jade Wallis Self - patient is the insured Medical (General) History Medical History History ICD Code Chicken pox Reflux Sciatica Broken bones Surgical History Surgery Date(Month/Year) appendectomy 2013 tonsillectomy 2012 Hospitalization History Reason Date(Month/Year) C for blood clot due to taking Seasoni que 07/2016 [facility] for blood clot 11/22/16
== END 2025-07-27 11:11 | disposition home or self-care (01) ==
LOC: HO.HBS 10:30
PROVIDERS: PCP Internal Medicine; Visit Provider Physician Assistant Surgical
DX: E66.9 Obesity, unspecified (principal); Z68.32 Body mass index [BMI] 32.0-32.9, adult; Z98.84 Bariatric surgery status
CPT/HCPCS: 99214; G2211

== ENCOUNTER 2025-08-01 07:47 | Outpatient (REF) | payer OTHER, SELFPAY ==
--- OUTSIDE RECORDS SUMMARY | 2024-01-15 10:00 | XMS_ITS | Continuity of Care Document ---
Author Organization [facility] Address [address] [place] [address] Phone Care Team Providers Care Display Specialist Name Role Phone Tristan Li Unavailable Unavailable Allergies, Adverse Reactions, Alerts Substance Reaction Status Criticality POTASSIUM CLAVULANATE Active No Inf ormation AMOXICILLIN TRIHYDRATE Active No In formation Procedures Procedure Date No Charge For Services Advance Directives Directive Yes / No Effective Date File Name No Information Encounters Encounter Description Practice Location Reason(s) For Visit Diagnoses Date Provider Providers Copied on Encounter [facility], [address], [place], [id number], [place] tel:[phone] [facility] - [place] Nevus, non-neoplas ticPersonal history of other venous thrombosis and embolism 4 Shaina Hudson. [address], [address], [facility] [place], [id number], [place]. tel:[phone] Family History Family Member Type Diagnosis Age At Onset No Information Payers Payer name Insurance type Covered green party ID Authoriza tion(s) Self Pay 09 Social History Type Description Quantity Date Captured Comments Alcohol Use Details No Caffeine Use Details Unknown Tobacco Use Status Never smoked tobacco 2023 Smoking Status Never smoker Non-Smoking Tobacco Use Details : No Details Available : No Details Available Sex Female Chief Complaint And Reason For Visit No Information Reason For Referral Reason For Referral No Information Plan Of Treatment Date Type Action Status Goal Tobacco cessation counseling completed History Of Present Illness Encounter Date Complaint History Of Prese nt Illness No Information Functional Status Date Functional Assessmen t No Information Instructions Date Instruction Additional Infor mation No Information Assessments Type Assessment Date assessment Nevus, non-neoplastic assessment Personal history of other venous thrombosis and embolism Patient Care Teams Name Effective Dates (start - stop) Status Members No Information
--- OUTSIDE RECORDS SUMMARY | 2025-08-01 07:50 | XMS_ITS | Patient Health Record ---
Author Organization [facility] Address [address] [place] [address] Care Team Providers Care Tank Operator Name Role Phone Zabrina Faye MD Primary Care Provider Kalli Menjivar Unavailable [phone] Allergies Allergen (clinical drug ingredient) Drug/Non Drug [...] X ray : Foot, right 3V 05/18/2016 [id number]-GMR 05/10/2017 45723- Debride <25 sq cm 05/24/2017 10650 I&D ABSCESS- SIMPLE,SINGLE 016 [id number] I&D ABSCESS- SIMPLE,SINGLE 017 [id number] I&D ABSCESS- SIMPLE,SINGLE 017 [id number] I&D ABSCESS- SIMPLE,SINGLE 017 Insurance Providers Payer Name Payer Address Payer Phone Subscriber Number Group Number Insured Name Patient Relationship to Insured Coverage Start Date Coverage End Date [facility] [address] [facility] [place] [id number] [phone] [id number] Jade Wallis Self - patient is the insured Medical (General) History Medical History History ICD Code Chicken pox Reflux Sciatica Broken bones Surgical History Surgery Date(Month/Year) appendectomy 2013 tonsillectomy 2012 Hospitalization History Reason Date(Month/Year) C for blood clot due to taking Seasoni que 07/2016 [facility] for blood clot 11/22/16
[2025-08-01 11:25] LABS: MANUAL DIFF FLAG NO
[2025-08-01 11:47] LABS: Hematocrit 38.6 % (37.0-47.0); Hemoglobin 12.4 g/dl (12.0-16.0); Imm Gran Abs Auto 0.01 X10*3/uL (0.00-0.03); Imm Gran Pct Auto 0.2 % (0.0-0.4); Lymphocytes Absolute Auto 1.5 X10*3/uL (1.2-4.9); Mean Corpuscular HGB Conc 32.1 g/dl (31.0-35.0); Mean Corpuscular Hemoglobin 30.2 pg (27.0-33.0); Mean Corpuscular Volume 94.1 fL (80.0-98.0); NRBC Abs Auto 0.000 X10*3/uL (0.0-0.012); NRBC Pct Auto 0.0 /100WBC (0.0-0.2); Platelet Count 247 X10*3/uL (160-400); Red Blood Count 4.10 X10*6/uL (4.20-5.50); White Blood Count 5.4 X10*3/uL (4.8-10.8)
[2025-08-01 12:07] LABS: Alanine Aminotransferase 13 U/L (0-31); Albumin Level 4.2 g/dL (3.5-5.0); Alkaline Phosphatase 56 U/L (39-117); Anion Gap 8 (12-20); Aspartate Amino Transferase 20 U/L (5-31); Blood Urea Nitrogen 17 mg/dL (9-16); Calcium 8.5 mg/dL (8.4-10.2); Carbon Dioxide 25 mmol/L (22-29); Chloride 110 mmol/L (96-108); Cholesterol 154 mg/dL (<200); Estimated Glomerular Filt Rate > 60; HDL Cholesterol 62 mg/dL (>40); Iron 80 mcg/dL (30-160); Percent Iron Saturation 30 % (15-50); Potassium 4.2 mmol/L (3.3-5.1); Sodium 139 mmol/L (135-145); Total Iron Binding Capacity 267 mcg/dL (228-428); Total Protein 6.8 g/dL (6.5-8.0); Triglycerides 69 mg/dL (<150); Unsaturated Iron Binding 187 ug/dL
[2025-08-01 12:10] LABS: Ferritin 22 ng/mL (10-250)
[2025-08-01 12:40] LABS: Folate 13.0 ng/mL (> or = 4.0); Vitamin B12 625 pg/mL (200-900)
== END 2025-08-01 07:48 | disposition home or self-care (01) ==
LOC: HO.HMGCLDS 07:47
PROVIDERS: Absent Provider Physician Assistant Surgical; PCP Internal Medicine; Visit Provider Internal Medicine
DX: E55.9 Vitamin D deficiency, unspecified (principal); E51.9 Thiamine deficiency, unspecified; Z13.6 Encounter for screening for cardiovascular disorders; Z13.1 Encounter for screening for diabetes mellitus; Z13.29 Encounter for screening for other suspected endocrine disorder; Z98.84 Bariatric surgery status
CPT/HCPCS: 36415; 80053; 80061; 82306; 82607; 82728; 82746; 83036; 83525; 83540; 84425; 84443; 84590; 84630; 85025; 86140

== ENCOUNTER 2025-08-07 14:16 | Outpatient (AMB) | payer OTHER, SELFPAY ==
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
== END 2025-08-07 15:01 | disposition home or self-care (01) ==
PROVIDERS: PCP Internal Medicine; Visit Provider Internal Medicine
DX: M54.50 Low back pain, unspecified (principal); G89.29 Other chronic pain; Z04.3 Encounter for examination and observation following other accident; Z68.32 Body mass index [BMI] 32.0-32.9, adult

== ENCOUNTER 2025-09-15 12:51 | Outpatient (REF) | payer OTHER, SELFPAY ==
--- NOTE | ~2025-09-15 | MM_ITS ---
EXAMINATION(S): MM DIAGNOSTIC DIGITAL BREAST TOMOSYNTHESIS, BILATERAL CLINICAL INFORMATION: 6-month follow-up of left breast grouped calcifications. They were first described on the screening mammogram in July 2023. COMPARISON: Comparison made to multiple prior, most recent September 15, 2024, and most remote July 28, 2021. TECHNIQUE: Digital breast tomosynthesis is performed in both the mediolateral oblique and craniocaudal views along with computer-aided detection (CAD). Synthesized 2D images are generated from the tomosynthesis. Magnified spot compression views of the left breast calcifications were obtained. FINDINGS: BREAST COMPOSITION: The breasts are heterogeneously dense, which may obscure small masses. RIGHT BREAST: No significant masses, suspicious calcifications or other abnormalities are seen. LEFT BREAST: Loosely grouped calcifications in the lower outer quadrant middle depth are not significantly changed from prior spot mag compression views from August 2023; given two years stability, they can now be considered a benign finding. No significant masses, new calcifications or other abnormalities are seen. MM/MM tomosynthesis diagnostic BI IMPRESSION: RIGHT BREAST: Negative, no mammographic evidence of malignancy. Normal interval follow-up is recommended in 12 months. LEFT BREAST: Benign, no mammographic evidence of malignancy. Patient may return to routine screening mammogram in 12 months. ASSESSMENT: BI-RADS: Category 2: Benign RECOMMENDATION: 1 year F/U Results were provided to the patient at time of visit by the technologist. This patient's information was entered into a reminder system with a target due date for their next mammogram. Electronically signed by: Lyssa Mccloud MD 09/15/2025 04:09 PM [facility] [place] [place]
--- OUTSIDE RECORDS SUMMARY | 2025-09-15 13:55 | XMS_ITS | Patient Health Record ---
Author Organization [facility] Address [address] [place] [address] Care Team Providers Care Journeyman Press Operator Name Role Phone Zabrina Faye MD Primary Care Provider Kalli Menjivar Unavailable [phone] Allergies Allergen (clinical drug ingredient) Drug/Non Drug [...] X ray : Foot, right 3V 05/18/2016 [id number] 05/10/2017 21479- Debride <25 sq cm 05/24/2017 71608 I&D ABSCESS- SIMPLE,SINGLE 016 [id number] I&D ABSCESS- SIMPLE,SINGLE 017 [id number] I&D ABSCESS- SIMPLE,SINGLE 017 [id number] I&D ABSCESS- SIMPLE,SINGLE 017 Insurance Providers Payer Name Payer Address Payer Phone Subscriber Number Group Number Insured Name Patient Relationship to Insured Coverage Start Date Coverage End Date [facility] [address] [facility] [place] [id number] [phone] [id number] Jade Wallis Self - patient is the insured Medical (General) History Medical History History ICD Code Chicken pox Reflux Sciatica Broken bones Surgical History Surgery Date(Month/Year) appendectomy 2013 tonsillectomy 2012 Hospitalization History Reason Date(Month/Year) C for blood clot due to taking Seasoni que 07/2016 [facility] for blood clot 11/22/16
== END 2025-09-15 12:52 ==
LOC: HO.MAMMO 12:51
PROVIDERS: PCP Internal Medicine; Visit Provider Internal Medicine
DX: R92.1 Mammographic calcification found on diagnostic imaging of breast (principal)
CPT/HCPCS: 77062; 77066

== ENCOUNTER → 2025-09-15 13:00 | Outpatient (BNV) | payer OTHER, SELFPAY | PROVIDERS: PCP Internal Medicine; Visit Provider Radiology Body Imaging | DX: R92.8 Other abnormal and inconclusive findings on diagnostic imaging of breast (principal) | CPT/HCPCS: 77062; 77066 ==